=== PATIENT | male | born 1940 | race Caucasian/White ===

== ENCOUNTER 2023-04-06 14:48 | Inpatient (IN) | payer MEDICARE, OTHER, SELFPAY ==
[2023-04-06] VITALS (29 sets, daily range): BP systolic 80–168; BP diastolic 49–85; PULSE 61–82; RESP 13–27; TEMP 36.1–36.8; O2SAT 94–100; BMI 29.9; BMI 26.5
--- NOTE | 2023-04-06 15:20 | XR_ITS ---
[place] [id number] Patient Name: ASIA KING MRN: [id number] date: 1940 Sex: M Assigned Patient Location: ER Current Patient Location: ER Accession/Order Number: [id number] Exam Date: 04/06/2023 15:50 Report Date: 04/06/2023 16:31 At the request of: TINO MEANS Procedure: XR pelvis 1-2V EXAM: XR pelvis 1-2V TECHNIQUE: Single AP view pelvis HISTORY: Fall COMPARISON: None. FINDINGS: No acute fracture or dislocation. Degenerative changes of the lower lumbar spine. Mild degenerative change of the hip joints. XR/XR pelvis 1-2V IMPRESSION: No fracture Electronically authenticated by: PRASHANT RUST Date: 04/06/2023 16:31
--- NOTE | 2023-04-06 15:20 | XR_ITS ---
[place] [id number] Patient Name: ASIA KING MRN: [id number] date: 1940 Sex: M Assigned Patient Location: ER Current Patient Location: ER Accession/Order Number: [id number] Exam Date: 04/06/2023 15:50 Report Date: 04/06/2023 16:33 At the request of: TINO MEANS Procedure: XR knee RT 4V EXAM: XR knee RT 4V TECHNIQUE: AP and lateral and both oblique views right knee HISTORY: Fall COMPARISON: None. FINDINGS: No acute fracture or dislocation. 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 Small knee joint effusion. Soft tissue swelling superficial to the patella. XR/XR knee RT 4V IMPRESSION: No fracture Electronically authenticated by: PRASHANT RUST Date: 04/06/2023 16:33
--- NOTE | 2023-04-06 15:20 | CT_ITS ---
The [address] [address] Patient Name: ASIA KING MRN: [id number] date: 1940 Sex: M Assigned Patient Location: ER Current Patient Location: ER Accession/Order Number: [id number] Exam Date: 04/06/2023 15:50 Report Date: 04/06/2023 16:37 At the request of: TINO MEANS Procedure: CT facial bones wo con CT head/brain wo con, CT facial bones wo con, CT cervical spine wo con, 04/06/2023 3:50 PM EST INDICATION: Fall COMPARISON: There is no appropriate prior study for comparison. TECHNIQUE: Axial images of 3 mm are obtained from the base of the skull to vertex completed with Axial images of 2 mm are obtained from base of skull to T2 without contrast. There is reconstruction of the facial bone. Dose reduction techniques were achieved by using automated exposure control and/or adjustment of mA and/or kV according to patient size and/or use of iterative reconstruction technique. FINDINGS: The sensitivity of study has been decreased due to streak artifacts from dental fillings. The cerebral and cerebellar sulci as well as ventricular system are appropriate for age. There is no intracranial mass, mass effect, midline shift, intra or extra-axial fluid collection. No acute territorial infarction or hemorrhage is noted. The visualized portions of orbits, mastoid air cells as well as paranasal sinuses are unremarkable. There is status post bilateral lens replacement. Right thyroid nodule measuring 2 cm noted. There is no suspicious osteolytic or osteoblastic lesion. There is nasal bone fractures with adjacent soft tissue swelling suggesting of focal acute to subacute. No other acute fracture or dislocation is noted. Multilevel degenerative changes of cervical spine are noted. Soft tissue swelling and subcutaneous emphysema along the left frontal lesion likely due to a wound. CT/CT facial bones wo con IMPRESSION: No acute intracranial process is identified. Nasal bone fractures with adjacent soft tissue swelling suggesting of acute to subacute process. Soft tissue swelling with subcutaneous emphysema in the left frontal region. Incidental note of 2 cm left thyroid lesion. Follow-up with elective ultrasound is recommended. Electronically authenticated by: JAYLYN MARES Date: 04/06/2023 16:37
--- NOTE | 2023-04-06 15:20 | CT_ITS ---
The [address] [address] Patient Name: ASIA KING MRN: [id number] date: 1940 Sex: M Assigned Patient Location: ER Current Patient Location: ER Accession/Order Number: [id number] Exam Date: 04/06/2023 15:50 Report Date: 04/06/2023 16:37 At the request of: TINO MEANS Procedure: CT head/brain wo con CT head/brain wo con, CT facial bones wo con, CT cervical spine wo con, 04/06/2023 3:50 PM EST INDICATION: Fall COMPARISON: There is no appropriate prior study for comparison. TECHNIQUE: Axial images of 3 mm are obtained from the base of the skull to vertex completed with Axial images of 2 mm are obtained from base of skull to T2 without contrast. There is reconstruction of the facial bone. Dose reduction techniques were achieved by using automated exposure control and/or adjustment of mA and/or kV according to patient size and/or use of iterative reconstruction technique. FINDINGS: The sensitivity of study has been decreased due to streak artifacts from dental fillings. The cerebral and cerebellar sulci as well as ventricular system are appropriate for age. There is no intracranial mass, mass effect, midline shift, intra or extra-axial fluid collection. No acute territorial infarction or hemorrhage is noted. The visualized portions of orbits, mastoid air cells as well as paranasal sinuses are unremarkable. There is status post bilateral lens replacement. Right thyroid nodule measuring 2 cm noted. There is no suspicious osteolytic or osteoblastic lesion. There is nasal bone fractures with adjacent soft tissue swelling suggesting of focal acute to subacute. No other acute fracture or dislocation is noted. Multilevel degenerative changes of cervical spine are noted. Soft tissue swelling and subcutaneous emphysema along the left frontal lesion likely due to a wound. CT/CT head/brain wo con IMPRESSION: No acute intracranial process is identified. Nasal bone fractures with adjacent soft tissue swelling suggesting of acute to subacute process. Soft tissue swelling with subcutaneous emphysema in the left frontal region. Incidental note of 2 cm left thyroid lesion. Follow-up with elective ultrasound is recommended. Electronically authenticated by: JAYLYN MARES Date: 04/06/2023 16:37
--- NOTE | 2023-04-06 15:20 | CT_ITS ---
The [address] [address] Patient Name: ASIA KING MRN: [id number] date: 1940 Sex: M Assigned Patient Location: ER Current Patient Location: ER Accession/Order Number: [id number] Exam Date: 04/06/2023 15:50 Report Date: 04/06/2023 16:37 At the request of: TINO MEANS Procedure: CT cervical spine wo con CT head/brain wo con, CT facial bones wo con, CT cervical spine wo con, 04/06/2023 3:50 PM EST INDICATION: Fall COMPARISON: There is no appropriate prior study for comparison. TECHNIQUE: Axial images of 3 mm are obtained from the base of the skull to vertex completed with Axial images of 2 mm are obtained from base of skull to T2 without contrast. There is reconstruction of the facial bone. Dose reduction techniques were achieved by using automated exposure control and/or adjustment of mA and/or kV according to patient size and/or use of iterative reconstruction technique. FINDINGS: The sensitivity of study has been decreased due to streak artifacts from dental fillings. The cerebral and cerebellar sulci as well as ventricular system are appropriate for age. There is no intracranial mass, mass effect, midline shift, intra or extra-axial fluid collection. No acute territorial infarction or hemorrhage is noted. The visualized portions of orbits, mastoid air cells as well as paranasal sinuses are unremarkable. There is status post bilateral lens replacement. Right thyroid nodule measuring 2 cm noted. There is no suspicious osteolytic or osteoblastic lesion. There is nasal bone fractures with adjacent soft tissue swelling suggesting of focal acute to subacute. No other acute fracture or dislocation is noted. Multilevel degenerative changes of cervical spine are noted. Soft tissue swelling and subcutaneous emphysema along the left frontal lesion likely due to a wound. CT/CT cervical spine wo con IMPRESSION: No acute intracranial process is identified. Nasal bone fractures with adjacent soft tissue swelling suggesting of acute to subacute process. Soft tissue swelling with subcutaneous emphysema in the left frontal region. Incidental note of 2 cm left thyroid lesion. Follow-up with elective ultrasound is recommended. Electronically authenticated by: JAYLYN MARES Date: 04/06/2023 16:37
--- NOTE | 2023-04-06 15:20 | ECG_ITS ---
The [facility] Test Date: 2023-04-06 Pat Name: ASIA KING Department: Room: - Gender: Male Information Security: : 1940 Requested By: SHITAL CRUZ Order Number: [id number] Reading MD: CATHRYN SLOAN Measurements Intervals [place] Rate: 62 P: 50 [place]: 204 QRS: -31 QRSD: 96 T: 28 QT: 430 QTc: 435 Interpretive Statements 1100 Sinus rhythm 3614 Cannot rule out inferior myocardial infarction, age undetermined 7200 Abnormal left axis deviation 9150 abnormal ECG Electronically Signed On 04-07-2023 10:45:10 EST by CATHRYN SLOAN
--- NOTE | 2023-04-06 15:20 | XR_ITS ---
The [address] [address] Patient Name: ASIA KING MRN: [id number] date: 1940 Sex: M Assigned Patient Location: ER Current Patient Location: ER Accession/Order Number: [id number] Exam Date: 04/06/2023 15:50 Report Date: 04/06/2023 16:18 At the request of: TINO MEANS Procedure: XR chest 1V EXAM: XR chest 1V HISTORY: Fall. COMPARISON: Chest radiograph dated 12/09/2020. TECHNIQUE: 3 AP views of the chest performed. FINDINGS: The trachea is unremarkable. Stable mild prominence of the cardiac silhouette. There is no consolidation, infiltrate, pleural effusion or pulmonary vascular congestion. There is a stable calcified granuloma within the right lower chest. There is no pneumothorax. The bony structures are osteopenic. No acute osseous abnormality is seen. There are endplate spurs along the spine. There are degenerative changes at the glenohumeral articulations, severe on the right and moderate on the left. XR/XR chest 1V IMPRESSION: There is no acute cardiopulmonary process. Electronically authenticated by: CHELSEA LEMON Date: 04/06/2023 16:18
--- NOTE | 2023-04-06 15:23 | ED.WEAKNESS1 ---
HPI - Weakness General Chief complaint: Weakness Stated complaint: UNSTEADY NOT EATING Time Seen by Provider: 04/06/23 15:09 Source: patient and family Mode of arrival: Wheelchair History of Present Illness HPI Narrative: Patient is an 82-year-old male who presents to the emergency department with his stepdaughter for evaluation of multiple complaints. Patient's 2 months ago, he now lives at home by himself. He states Since his , he has had progressive weakness, difficulty caring for himself, dizziness, difficulty eating. He and his stepdaughter believe that he is depressed. Stepdaughter relates privately to me in the hallway that the patient has not been caring for himself since his , she did everything for the patient to care for him in the home. He now lives alone and has limited support system. He has had multiple falls in the last week, he reports a fall over 24 hours ago at home where he hit his face on the counter/cabinets. Unknown loss of consciousness. He believes he takes a baby aspirin daily. He has had no fevers, chills, chest pain, shortness of breath, nausea, vomiting, diarrhea. He reports injuries to the face, soreness in the back, pain in the right knee. He states when he is attempting to ambulate, he feels dizzy as though the room is spinning and he feels unsteady. Daughter also states that the patient has had negative thoughts in the last 2 months where he is giving away possessions at home and she believes that he is depressed and wants to take these negative thoughts seriously. He has had no direct statements of suicide or homicide. Related Data Home Medications Medication Instructions Recorded Confirmed atorvastatin 20 mg tablet 20 mg PO DAILY 04/06/23 04/06/23 carvedilol 12.5 mg tablet 12.5 mg PO BID 04/06/23 04/06/23 Allergies Allergy/AdvReac Type Severity Reaction Status Date / Time Penicillins Allergy Severe Verified 04/06/23 15:03 Review of Systems ROS Constitutional Denies: fever or chills Eyes Denies: change in vision Ears, nose, mouth, and throat Denies: throat pain or nasal congestion Cardiovascular Denies: chest pain Respiratory Denies: shortness of breath or cough Gastrointestinal Reports: nausea; Denies: abdominal pain, vomiting or diarrhea Genitourinary Denies: painful urination Musculoskeletal Reports: back pain and extremity pain; Denies: neck pain or extremity swelling Integumentary/Breast Denies: rash Neurological Reports: weakness in extremities and dizziness; Denies: headache Hematologic/Lymphatic Denies: easy bruising Exam Narrative Exam Narrative: Gen.: Awake, alert, in no distress Head: Normocephalic, No Arango sign or raccoon eyes. 2 cm laceration with no active bleeding or deep subcutaneous tissue involvement to the forehead between the eyebrows. 1.5 cm laceration over the nasal bridge. C-spine nontender with no ecchymosis or abrasion of the back of the head, neck or lower back. ENT: Moist mucous membranes, Dried epistaxis to the right nostril with no septal hematoma. No dental injury. Respiratory: No respiratory distress, lungs clear bilaterally Cardio: Regular rate and rhythm, Chest wall nontender Gastrointestinal: Abdomen is soft, nondistended and nontender to palpation, Pelvis is stable and hips are nontender Extremities: Moves extremities equally, no injuries noted, Bilateral well-healed surgical incisions over the anterior knees with mild erythema and tenderness over the right knee anteriorly. No joint effusion, normal flexion and extension of the bilateral knees. Psych: Normal mood and affect Neuro: No focal neuro deficit Skin: Warm, dry, intact Constitutional Vital Signs, click to edit/add: Last Vital Signs Temp 97.9 F 04/06/23 14:58 Pulse 64 04/06/23 14:58 Resp 18 04/06/23 14:58 BP 164/79 H 04/06/23 14:58 Pulse Ox 100 04/06/23 14:58 O2 Del Method Room Air 04/06/23 14:58 Course Vital Signs Vital signs: Vital Signs Temperature 97.9 F 04/06/23 14:58 Pulse Rate 64 04/06/23 14:58 Respiratory Rate 18 04/06/23 14:58 Blood Pressure 164/79 H 04/06/23 14:58 Pulse Oximetry 100 04/06/23 14:58 Oxygen Delivery Method Room Air 04/06/23 14:58 Temperature 97.9 F 04/06/23 14:58 Pulse Rate 64 04/06/23 14:58 Respiratory Rate 18 04/06/23 14:58 Blood Pressure 164/79 H 04/06/23 14:58 Pulse Oximetry 100 04/06/23 14:58 Oxygen Delivery Method Room Air 04/06/23 14:58 MDM - Weakness MDM Narrative Medical decision making narrative: Patient treated with IV fluids. Labs obtained, patient sent for CT scanning and tetanus was updated. The lacerations to the face are over 24 hours old,These areas were cleansed and dressed. CT of the head, C-spine, facial bones shows nasal bone fractures which may be acute to subacute. Patient treated for open fracture of the nasal bridge with IV Rocephin. He was noted to have elevated white blood cell count, blood cultures and lactic acid were ordered. He was also noted to have hypokalemia with a potassium of 2.5. He was given oral K-Lyte, 50 mEq. He was switched to IV fluids with potassium for IV potassium supplementation. Labs also show that the patient has a normal troponin and he was not noted to have any EKG changes or complaints of chest pain or shortness of breath. He is in acute renal failure with creatinine 3.8 and BUN 75. Most recent lab studies at this facility were from 2020, the patient was admitted for dehydration and acute kidney injury at that time with a Creatinine 2.75 and BUN 53. His documentation from that visit on 11/12/2020 shows that he does have a history of chronic kidney disease. Dc catheter was placed to manage I and O's. Patient was given Antivert for dizziness, although at this point based on lab studies do suspect he is unsteady and falling due to low potassium, dehydration and acute renal failure. The remainder of his imaging does not show any acute abnormality. Patient admitted for hypokalemia, acute renal failure, dehydration, dizziness. Discussed with Dr. Del Cid for admission. Medical Records Attestation: I reviewed the patient's medical records. Lab Data Attestation: I reviewed the patient's lab results. Labs: Lab Results 04/06/23 04/06/23 Range/Units 15:15 16:25 WBC 20.4 H (4.0-11.0) 10^3/uL RBC 5.52 (4.70-6.10) 10^6/uL Hgb 15.7 (14.0-18.0) g/dL Hct 46.1 (42.0-54.0) % MCV 83.5 (80.0-94.0) fL MCH 28.4 (25.9-34.0) pg MCHC 34.1 (29.9-35.2) g/dL RDW 13.9 (11.0-15.0) % Plt Count 339 (150-450) 10^3/uL MPV 10.5 (9.5-13.5) fL Seg Neuts % (Manual) 82.0 Lymphocytes % (Manual) 10.0 L (20.5-60.0) % Monocytes % (Manual) 7.0 (1.7-12.0) % Eosinophils % (Manual) 0.0 L (0.9-7.0) % Basophils % (Manual) 1.0 (0.2-2.0) % Neutrophils # (Manual) 16.72 H (1.4-6.5) 10^3/uL Lymphocytes # (Manual) 2.04 (1.20-3.80) 10^3/uL Monocytes # (Manual) 1.42 H (0.30-0.80) 10^3/uL Eosinophils # (Manual) 0.00 (0.00-0.70) 10^3/uL Basophils # (Manual) 0.20 H (0.00-0.10) 10^3/uL PT 10.5 (9.0-11.6) sec INR 0.99 APTT 27.2 (22.3-36.2) sec VBG pH 7.493 H (7.330-7.430) VBG pCO2 46.6 (40.0-52.0) mmHg Sodium 134 L (136-145) mmol/L Potassium 2.5 L* (3.5-5.1) mmol/L Chloride 88 L (98-107) mmol/L Carbon Dioxide 35.1 H (21.0-32.0) mmol/L Anion Gap 13.4 BUN 75.0 H (7.0-18.0) mg/dL Creatinine 3.81 H (0.70-1.30) mg/dL Est GFR ( Amer) 19 L (>=60) Est GFR (Non-Af Amer) 15 L (>=60) BUN/Creatinine Ratio 19.7 Glucose 127 H (74-106) mg/dL Lactate 2.1 H (0.4-2.0) mmol/L Calcium 10.0 (8.5-10.1) mg/dL Total Bilirubin 1.8 H (0.2-1.0) mg/dL AST 28 (15-37) U/L ALT 29 (16-63) U/L Alkaline Phosphatase 102 (46-116) U/L Troponin I High Sens 61.0 (4.0-76.1) pg/mL Total Protein 8.4 H (6.4-8.2) g/dL Albumin 4.2 (3.4-5.0) g/dL Globulin 4.2 g/dL Albumin/Globulin Ratio 1.[address] scan - head: Attestation: I have reviewed the pertinent imaging results. Radiologist's impression: ITS Impressions Cervical Spine CT 04/06/23 15:20 IMPRESSION: No acute intracranial process is identified. Nasal bone fractures with adjacent soft tissue swelling suggesting of acute to subacute process. Soft tissue swelling with subcutaneous emphysema in the left frontal region. Incidental note of 2 cm left thyroid lesion. Follow-up with elective ultrasound is recommended. Electronically authenticated by: [facility] [address] Date: 04/06/2023 16:37 Chest X-Ray 04/06/23 15:20 IMPRESSION: There is no acute cardiopulmonary process. Electronically authenticated by: CHELSEA LEMON Date: 04/06/2023 16:[address] 04/06/23 15:20 IMPRESSION: No acute intracranial process is identified. Nasal bone fractures with adjacent soft tissue swelling suggesting of acute to subacute process. Soft tissue swelling with subcutaneous emphysema in the left frontal region. Incidental note of 2 cm left thyroid lesion. Follow-up with elective ultrasound is recommended. Electronically authenticated by: [facility] Date: 04/06/2023 16:[address] 04/06/23 15:20 IMPRESSION: No acute intracranial process is identified. Nasal bone fractures with adjacent soft tissue swelling suggesting of acute to subacute process. Soft tissue swelling with subcutaneous emphysema in the left frontal region. Incidental note of 2 cm left thyroid lesion. Follow-up with elective ultrasound is recommended. Electronically authenticated by: [facility] Date: 04/06/2023 16:37 Knee X-Ray 04/06/23 15:20 IMPRESSION: No fracture Electronically authenticated by: PRASHANT RUST Date: 04/06/2023 16:33 Pelvis X-Ray 04/06/23 15:20 IMPRESSION: No fracture Electronically authenticated by: PRASHANT RUST Date: 04/06/2023 16:31 ECG Data Attestation: I personally reviewed and interpreted this ECG as follows: (Normal sinus rhythm at a rate of 62, no acute ST elevation or ectopy. EKG reviewed by attending physician.) ECG interpretation date: 04/06/23 Discharge Plan Discharge Chief Complaint: Weakness Patient Disposition: Admitted As Inpatient Time of Disposition Decision: 17:31 Prescriptions / Home Meds: No Action atorvastatin 20 mg tablet 20 mg PO DAILY carvedilol 12.5 mg tablet 12.5 mg PO BID Referrals: SHITAL CRUZ [Primary Care Provider] - 1 week
[2023-04-06 15:29] LABS: Hematocrit 46.1 % (42.0-54.0); Hemoglobin 15.7 g/dL (14.0-18.0); Mean Corpuscular HGB Conc 34.1 g/dL (29.9-35.2); Mean Corpuscular Hemoglobin 28.4 pg (25.9-34.0); Mean Corpuscular Volume 83.5 fL (80.0-94.0); Mean Platelet Volume 10.5 fL (9.5-13.5); Platelet Count 339 10^3/uL (150-450); Red Blood Count 5.52 10^6/uL (4.70-6.10); Red Cell Distribution Width 13.9 % (11.0-15.0); White Blood Count 20.4 10^3/uL (4.0-11.0)
[2023-04-06 15:42] LABS: INR 0.99; Partial Thromboplastin Time 27.2 sec (22.3-36.2); Prothrombin Time 10.5 sec (9.0-11.6)
[2023-04-06] MEDS: 0.9 % SODIUM CHLORIDE 1,000 ML 999 ML IV (15:43)
[2023-04-06] MEDS: ADACEL DIPH,PERTUSS(ACELL),TET VAC/PF 0.5 ML ADULT SYRINGE IM (15:43)
[2023-04-06] MEDS: MECLIZINE HCL 12.5 MG TABLET 25 MG PO (15:45)
[2023-04-06 15:48] LABS: Alanine Aminotransferase 29 U/L (16-63); Albumin Level 4.2 g/dL (3.4-5.0); Alkaline Phosphatase 102 U/L (46-116); Aspartate Amino Transferase 28 U/L (15-37); BUN Creatinine Ratio 19.7; Bilirubin Total 1.8 mg/dL (0.2-1.0); Carbon Dioxide 35.1 mmol/L (21.0-32.0); Estimated GFR (African America 19 (>=60); Estimated GFR (Non-African Ame 15 (>=60); Globulin 4.2 g/dL; Glucose 127 mg/dL (74-106); Total Protein 8.4 g/dL (6.4-8.2)
[2023-04-06 15:58] LABS: Potassium 2.5 mmol/L (3.5-5.1)
[2023-04-06 15:59] LABS: Anion Gap 13.4; Chloride 88 mmol/L (98-107); Sodium 134 mmol/L (136-145)
[2023-04-06 16:16] LABS: Lymphocytes Absolute Manual 2.04 10^3/uL (1.20-3.80); Monocytes Absolute Manual 1.42 10^3/uL (0.30-0.80); Segmented Neut Absolute Manual 16.72 10^3/uL (1.4-6.5)
[2023-04-06 16:36] LABS: PCO2 VBG 46.6 mmHg (40.0-52.0); pH VBG 7.493 (7.330-7.430)
[2023-04-06] MEDS: POTASSIUM CHLORIDE IN 0.9%NACL 1,000 ML 250 MEQ IV (16:43)
[2023-04-06] MEDS: POTASSIUM BICARBONATE/CIT 25 MEQ TABLET EFF 50 MEQ PO (16:43)
[2023-04-06 16:59] LABS: Lactate/Lactic Acid 2.1 mmol/L (0.4-2.0)
[2023-04-06 17:27] LABS: Bilirubin Urine NEGATIVE (NEGATIVE); Blood Urine SMALL (NEGATIVE); Clarity Urine CLEAR (CLEAR); Color Urine LT. YELLOW (YELLOW); Glucose Urine UA NEGATIVE (NEGATIVE); Ketones Urine NEGATIVE (NEGATIVE); Leukocyte Esterase Urine NEGATIVE (NEGATIVE); Nitrite Urine NEGATIVE (NEGATIVE); Protein Urine NEGATIVE (NEG/TRACE); Specific Gravity Urine <=1.005 (1.005-1.025); Urobilinogen Urine 0.2 EU/dL (0.2-1.0)
[2023-04-06 17:29] LABS: Urine Microscopic Indicated YES
[2023-04-06] MEDS: CEFTRIAXONE 1,000 MG in 0.9 % SODIUM CHLORIDE 50 ML 100 MG IV (17:34)
[2023-04-06 17:38] LABS: Bacteria Urine NONE SEEN #/HPF (NONE SEEN); Cast Seen? SEEN #/LPF (NONE SEEN); Crystals Seen? None Seen #/HPF (None Seen); Mucus Urine NONE SEEN (NONE SEEN); RBC Urine 0-2 #/HPF (0-2); Squamous Epithelial Cell Urine RARE #/LPF (NONE/RARE); WBC Urine NONE SEEN #/HPF (NONE SEEN)
[2023-04-06 17:39] LABS: Hyaline Casts Urine RARE; Urine Culture Indicated NO
[2023-04-06] MEDS: BACITRACIN 0.9 GM PACKET 1 PACKET TOPICAL (18:00)
[2023-04-06 18:43] LABS: Magnesium 2.6 mg/dL (1.8-2.4)
[2023-04-06 18:58] LABS: PROCALCITONIN 0.18 ng/mL (0.00-0.50)
[2023-04-06 19:01] LABS: Adenovirus NOT DETECTED (NOT DETECTE); Bordetella parapertussis NOT DETECTED (NOT DETECTE); Coronavirus 229E NOT DETECTED (NOT DETECTE); Coronavirus HKU1 NOT DETECTED (NOT DETECTE); Coronavirus NL63 NOT DETECTED (NOT DETECTE); Coronavirus OC43 NOT DETECTED (NOT DETECTE); Human Metapneumovirus NOT DETECTED (NOT DETECTE); Human Rhinovirus/Enterovirus NOT DETECTED (NOT DETECTE); Influenza A NOT DETECTED (NOT DETECTE); Influenza B NOT DETECTED (NOT DETECTE); Mycoplasma pneumoniae NOT DETECTED (NOT DETECTE); Parainfluenza Virus 1 NOT DETECTED (NOT DETECTE); Parainfluenza Virus 2 NOT DETECTED (NOT DETECTE); Parainfluenza Virus 3 NOT DETECTED (NOT DETECTE); Parainfluenza Virus 4 NOT DETECTED (NOT DETECTE); Respiratory Syncytial Virus NOT DETECTED (NOT DETECTE); SARS-CoV-2 NOT DETECTED (NOT DETECTE)
[2023-04-06 20:40] LABS: Lactate/Lactic Acid 1.9 mmol/L (0.4-2.0)
[2023-04-06] MEDS: 0.9 % SODIUM CHLORIDE 1,000 ML 125 ML IV (20:59)
[2023-04-06] MEDS: HEPARIN SODIUM (PORCINE) 5,000 UNIT/ML VIAL 5000 UNIT SUBQ (20:59)
[2023-04-06] MEDS: CARVEDILOL 12.5 MG TABLET PO (20:59)
[2023-04-07] VITALS (22 sets, daily range): BP systolic 77–144; BP diastolic 46–65; PULSE 57–68; RESP 18–20; TEMP 36.6–37.1; O2SAT 94–96
[2023-04-07] MEDS: 0.9 % SODIUM CHLORIDE 1,000 ML 125 ML IV (04:59)
[2023-04-07 05:43] LABS: Basophils Absolute Auto 0.1 10^3/uL (0.0-0.1); Basophils Percent Auto 0.5 % (0.2-2.0); Eosinophils Absolute Auto 0.2 10^3/uL (0.0-0.7); Eosinophils Percent Auto 1.1 % (0.9-7.0); Hematocrit 39.9 % (42.0-54.0); Hemoglobin 13.2 g/dL (14.0-18.0); Immature Granulocytes Abs Auto 0.06 10^3/uL (0.00-0.03); Immature Granulocytes Pct Auto 0.4 % (0.0-0.5); Lymphocytes Absolute Auto 2.3 10^3/uL (1.2-3.8); Lymphocytes Percent Auto 15.3 % (20.5-60.0); Mean Corpuscular HGB Conc 33.1 g/dL (29.9-35.2); Mean Corpuscular Hemoglobin 28.3 pg (25.9-34.0); Mean Corpuscular Volume 85.4 fL (80.0-94.0); Mean Platelet Volume 10.4 fL (9.5-13.5); Monocytes Absolute Auto 2.6 10^3/uL (0.3-0.8); Monocytes Percent Auto 17.2 % (1.7-12.0); Neutrophils Absolute Auto 9.7 10^3/uL (1.4-6.5); Neutrophils Percent Auto 65.5 % (43.0-75.0); Platelet Count 264 10^3/uL (150-450); Red Blood Count 4.67 10^6/uL (4.70-6.10); Red Cell Distribution Width 14.3 % (11.0-15.0); White Blood Count 14.8 10^3/uL (4.0-11.0)
[2023-04-07 06:01] LABS: Alanine Aminotransferase 37 U/L (16-63); Albumin Globulin Ratio 0.9; Albumin Level 3.1 g/dL (3.4-5.0); Alkaline Phosphatase 80 U/L (46-116); Anion Gap 8.2; Aspartate Amino Transferase 33 U/L (15-37); BUN Creatinine Ratio 22.6; Bilirubin Total 0.9 mg/dL (0.2-1.0); Calcium 8.6 mg/dL (8.5-10.1); Carbon Dioxide 31.1 mmol/L (21.0-32.0); Chloride 99 mmol/L (98-107); Estimated GFR (African America 25 (>=60); Estimated GFR (Non-African Ame 20 (>=60); Globulin 3.5 g/dL; Glucose 105 mg/dL (74-106); Sodium 136 mmol/L (136-145); Total Protein 6.6 g/dL (6.4-8.2)
[2023-04-07 06:23] LABS: Potassium 2.3 mmol/L (3.5-5.1)
[2023-04-07] MEDS: POTASSIUM CHLORIDE 40 MEQ in 0.9 % SODIUM CHLORIDE 250 ML 67.5 MEQ IV (07:58)
--- NOTE | 2023-04-07 08:59 | P.HP_ITS ---
H&P: HPI History of Present Illness Chief complaint: UNSTEADY NOT EATING Narrative: patient is a 82-year-old male with past medical history of hypertension, hyperlipidemia, iron deficiency anemia, CKD who presented to the Emergency Room yesterday after having several falls at home. At the time of exam patient's [id number] and niece are at bedside. Patient says his health started to decline a few months ago when his . He has lost rated and 30 pounds. He has tried to do some grief counseling with hospice but feels he needs more grief counseling. He continued to take his medications as prescribed including both the Lasix and hydrochlorothiazide. On admission exam he has positive orthostatic vital signs. The Emergency Room also found hypokalemia at 2.1. Leukocytosis of thirty thousand and a urinary tract infection.CT of the head face showed a fracture nasal bone. No other fractures or brain pathology seen. Patient states that his nose is sore but denies any breathing issues. He had a right knee replacement recently and did fall on his knee which does show some bruising the x-ray was negative for fracture. Overall he says he's just been getting really weak and dizzy especially when he stands up which is leading to his falls. He says his was his primary glued wood tester and assisted him with all of his medications so he is not really sure what he should and shouldn't be taking. He saw a bronze chaser about 1-2 years ago in [place] and sees a primary care physician. Patient has no other issues or concerns. Review of Systems ROS Narrative ROS: a complete review of systems were reviewed with patient and are positive as below or listed in History of Chief Complaint. General: no fever, chills, night sweats Head: no headache, trauma, visual changes, nausea or vomiting Skin: no reported rashes, itching or sores Eyes: no blurriness of vision Ears: no reported hearing loss, vertigo, earache, or tinnitus Throat: no sore throat, hoarseness, swelling of neck, or tongue pain Heart: no chest pain Lungs: no shortness of breath or cough GI: no diarrhea or vomiting/nausea Urinary: no urinary urgency, frequency or pain Neuro: no numbness or tingling HEM: no bleeding issues or bruising ENDO: no thyroid problems Psych: no anxiety but some depression PFSH PFSH Medical History (Updated 04/07/23 @ 16:27 by Babs Del Cid DO) Anemia ?D64.9 - Anemia, unspecified (ICD-10) Chronic kidney disease ?N18.9 - Chronic kidney disease, unspecified (ICD-10) Hypertension ?I10 - Essential (primary) hypertension (ICD-10) Surgical History History of bilateral knee replacement ?Z96.653 - Presence of artificial knee joint, bilateral (ICD-10) Family History Father Family history of myocardial infarction Family history of hypertension Family history of CHF (congestive heart failure) Social History Within the past year, how often did you have a drink containing alcohol: monthly or less Smoking status: Former smoker Non-prescribed substance use: cannabis (any form) Highest level of school completed/degree received: high school graduate Do you think of yourself as: straight/heterosexual Gender Identity: male Meds Home Medications and Allergies Home Medications Medication Instructions Recorded Confirmed Type amlodipine 5 mg tablet 5 mg PO DAILY 04/06/23 04/06/23 History atorvastatin 20 mg tablet 20 mg PO DAILY 04/06/23 04/06/23 History carvedilol 12.5 mg tablet 12.5 mg PO BID 04/06/23 04/06/23 History ferrous sulfate 325 mg (65 mg 325 mg PO DAILY 04/06/23 04/06/23 History iron) tablet,delayed release furosemide 40 mg tablet 40 mg PO DAILY 04/06/23 04/06/23 History hydrochlorothiazide 25 mg tablet 25 mg PO DAILY 04/06/23 04/06/23 History Allergies Allergy/AdvReac Type Severity Reaction Status Date / Time Penicillins Allergy Severe Verified 04/06/23 15:03 Exam Narrative Exam Narrative: General: Patient is alert, and oriented to person, place and time with normal affect, proper hygiene Skin: 1cm laceration on the nasal bone and forehead, closed and healing Head: atraumatic, acephalic Eyes: PERRLA, no nystagmus present, conjunctiva clear, no scleral icterus Ears: normal gross auditory acuity Nose: symmetric, no discharge, no maxillary or frontal sinus tenderness Heart: Normal rate and rhythm, no murmurs/rubs/gallops Lungs: no audible wheezes, crackles and normal breath sounds all lung gage Abdomen: Normal audible bowel sounds, no distension, No palpable masses, no organomegaly, no rebound/guarding/ or rigidity Musculoskeletal: no swelling bilateral lower extremities, bruise noted on the right knee patella Neuro: CN II-X grossly intact, normal sensation upper and lower extremities Constitutional Vital Signs, click to edit/add: Last Vital Signs Temp 98.7 F 04/07/23 04:58 Pulse 57 L 04/07/23 07:49 Resp 20 04/07/23 04:58 BP 130/61 04/07/23 04:58 Pulse Ox 94 L 04/07/23 04:58 O2 Del Method Room Air 04/07/23 04:58 Results Labs Labs: Short CBC 04/06/23 04/07/23 Range/Units 15:15 05:16 WBC 20.4 H 14.8 H (4.0-11.0) 10^3/uL Hgb 15.7 13.2 L (14.0-18.0) g/dL Hct 46.1 39.9 L (42.0-54.0) % Plt Count 339 264 (150-450) 10^3/uL BMP 04/06/23 04/07/23 15:15 05:16 Sodium 134 L 136 Potassium 2.5 L* 2.3 L* Chloride 88 L 99 Carbon Dioxide 35.1 H 31.1 BUN 75.0 H 67.0 H Creatinine 3.81 H 2.97 H Glucose 127 H 105 Calcium 10.0 8.6 Liver Function 04/06/23 04/07/23 Range/Units 15:15 05:16 Total Bilirubin 1.8 H 0.9 (0.2-1.0) mg/dL AST 28 33 (15-37) U/L ALT 29 37 (16-63) U/L Alkaline Phosphatase 102 80 (46-116) U/L Albumin 4.2 3.1 L (3.4-5.0) g/dL Urine 04/06/23 Range/Units 17:20 Urine Color Lt. yellow (YELLOW) Urine Clarity Clear (CLEAR) Urine pH 6.0 (5.0-9.0) Ur Specific [place] <=1.005 A (1.005-1.025) Urine Protein Negative (NEG/TRACE) mg/dL Urine Glucose (UA) Negative (NEGATIVE) mg/dL ABG ABG results: 04/06/23 16:25 VBG pH 7.493 H VBG pCO2 46.6 Assessment and Plan Assessment and Plan (1) Acute hypokalemia: Assessment and Plan: mostly related to his Lasix and hydrochlorothiazide combination. We'll continue to hold this and provide IV potassium replacement and oral replacement. Continue to monitor potassium level closely. (2) Dehydration: Assessment and Plan: continue IV fluids with potassium. Improvement in creatinine and BUNs this morning. Improvement in leukocytosis (3) Laceration of face, multiple sites: Assessment and Plan: healing, placed on rocephin for leukocytosis and possible infection. UA negative (4) Frequent falls: Assessment and Plan: due to hypotension from polypharmacy, will also stop Amlodipine (5) Acute renal failure: Assessment and Plan: admitting creatinine was 3.81 this morning is down to 2.97 and with the hypokalemia will put in a consultation for the tele bronze chaser tomorrow. And appreciate their input. Avoid diuretics. Qualifiers: Acute renal failure type: unspecified Qualified Code(s): N17.9 - Acute kidney failure, unspecified (6) Dizziness: Assessment and Plan: most likely from hypotension will address blood pressure medications (7) Anemia: Assessment and Plan: iron deficiency, continue iron replacement Qualifiers: Anemia type: due to chronic kidney disease Chronic kidney disease stage: unspecified stage Qualified Code(s): N18.9 - Chronic kidney disease, unspecified; D63.1 - Anemia in chronic kidney disease (8) Hypertension: Assessment and Plan: continue home medications but will need adjusted secondary to hypotension. Qualifiers: Hypertension type: primary hypertension Qualified Code(s): I10 - Essential (primary) hypertension Plan patient is a full code Continue Lovenox for deep vein thrombosis prophylaxis PT OT evaluation and treat patient is an inpatient status as expected to stay more than to midnights Urinary Catheter Management Urinary Catheter Management Urethral: Cath placed during this visit: yes Urethral indwelling: No Insertion date: 04/06/23 Insertion time: 16:55
[2023-04-07] MEDS: CARVEDILOL 12.5 MG TABLET PO (09:04)
[2023-04-07] MEDS: POTASSIUM CHLORIDE 10 MEQ ER TABLET 20 MEQ PO ×2 (09:04→20:36)
[2023-04-07] MEDS: ATORVASTATIN CALCIUM 20 MG TABLET PO (09:04)
[2023-04-07] MEDS: FERROUS SULFATE 325 MG TABLET PO (09:04)
[2023-04-07] MEDS: HEPARIN SODIUM (PORCINE) 5,000 UNIT/ML VIAL 5000 UNIT SUBQ ×2 (09:06→20:36)
[2023-04-07 13:17] LABS: Anion Gap 10.7; BUN Creatinine Ratio 21.1; Calcium 8.8 mg/dL (8.5-10.1); Carbon Dioxide 32.4 mmol/L (21.0-32.0); Chloride 98 mmol/L (98-107); Estimated GFR (African America 27 (>=60); Estimated GFR (Non-African Ame 22 (>=60); Glucose 112 mg/dL (74-106); Potassium 3.1 mmol/L (3.5-5.1); Sodium 138 mmol/L (136-145)
[2023-04-07] MEDS: 0.9 % SODIUM CHLORIDE 1,000 ML 50 ML IV (19:43)
[2023-04-07] MEDS: CARVEDILOL 3.125 MG TABLET PO (20:36)
[2023-04-08] VITALS (20 sets, daily range): BP systolic 91–149; BP diastolic 50–73; PULSE 62–72; RESP 18–19; TEMP 36.4–36.6; O2SAT 93–98
[2023-04-08 05:23] LABS: Basophils Absolute Auto 0.1 10^3/uL (0.0-0.1); Basophils Percent Auto 0.9 % (0.2-2.0); Eosinophils Absolute Auto 0.6 10^3/uL (0.0-0.7); Eosinophils Percent Auto 4.6 % (0.9-7.0); Hematocrit 38.1 % (42.0-54.0); Hemoglobin 12.4 g/dL (14.0-18.0); Immature Granulocytes Abs Auto 0.06 10^3/uL (0.00-0.03); Immature Granulocytes Pct Auto 0.4 % (0.0-0.5); Lymphocytes Absolute Auto 2.4 10^3/uL (1.2-3.8); Lymphocytes Percent Auto 17.3 % (20.5-60.0); Mean Corpuscular HGB Conc 32.5 g/dL (29.9-35.2); Mean Corpuscular Hemoglobin 28.2 pg (25.9-34.0); Mean Corpuscular Volume 86.6 fL (80.0-94.0); Mean Platelet Volume 10.5 fL (9.5-13.5); Monocytes Absolute Auto 2.3 10^3/uL (0.3-0.8); Monocytes Percent Auto 16.3 % (1.7-12.0); Neutrophils Absolute Auto 8.4 10^3/uL (1.4-6.5); Neutrophils Percent Auto 60.5 % (43.0-75.0); Platelet Count 239 10^3/uL (150-450); Red Cell Distribution Width 14.4 % (11.0-15.0); White Blood Count 13.9 10^3/uL (4.0-11.0)
[2023-04-08 06:10] LABS: Alanine Aminotransferase 29 U/L (16-63); Albumin Globulin Ratio 0.8; Albumin Level 2.7 g/dL (3.4-5.0); Alkaline Phosphatase 69 U/L (46-116); Anion Gap 8.3; Aspartate Amino Transferase 23 U/L (15-37); BUN Creatinine Ratio 21.3; Bilirubin Total 0.9 mg/dL (0.2-1.0); Calcium 8.5 mg/dL (8.5-10.1); Carbon Dioxide 28.6 mmol/L (21.0-32.0); Chloride 102 mmol/L (98-107); Estimated GFR (African America 32 (>=60); Estimated GFR (Non-African Ame 27 (>=60); Globulin 3.3 g/dL; Glucose 93 mg/dL (74-106); Sodium 136 mmol/L (136-145)
[2023-04-08 06:25] LABS: Potassium 2.9 mmol/L (3.5-5.1)
--- NOTE | 2023-04-08 08:30 | CM.NOTE ---
Important Message From Medicare discussed with pt, pt verbalizes understanding and signs paper. Original given to pt and copy placed on pt's chart.
--- NOTE | 2023-04-08 08:36 | PM.PN ---
Progress Note: Subjective Subjective Interval history: Patient sitting up in chair this morning. No complaints. says he still gets dizzy when standing. Denies any chest pain, sob, fevers, chills, n/v/d Exam Narrative Exam Narrative: General: Patient is alert, and oriented to person, place and time with normal affect, proper hygiene Skin: healing facial lacerations Head: atraumatic, acephalic Heart: Normal rate and rhythm, no murmurs/rubs/gallops Lungs: no audible wheezes, crackles and normal breath sounds all lung gage Abdomen: Normal audible bowel sounds, no distension, No palpable masses, no organomegaly, no rebound/guarding/ or rigidity Musculoskeletal: no swelling bilateral lower extremities Neuro: CN II-X grossly intact Constitutional Vital Signs, click to edit/add: Last Vital Signs Temp 97.6 F 04/08/23 05:23 Pulse 66 04/08/23 07:56 Resp 18 04/08/23 05:23 BP 91/50 04/08/23 07:56 Pulse Ox 93 L 04/08/23 05:23 O2 Del Method Room Air 04/08/23 05:23 Progress Note: Objective Labs Labs: Short CBC 04/08/23 Range/Units 05:00 WBC 13.9 H (4.0-11.0) 10^3/uL Hgb 12.4 L (14.0-18.0) g/dL Hct 38.1 L (42.0-54.0) % Plt Count 239 (150-450) 10^3/uL BMP 04/07/23 04/08/23 12:59 05:00 Sodium 138 136 Potassium 3.1 L 2.9 L* Chloride 98 102 Carbon Dioxide 32.4 H 28.6 BUN 59.0 H 50.0 H Creatinine 2.79 H 2.35 H Glucose 112 H 93 Calcium 8.8 8.5 Liver Function 04/08/23 Range/Units 05:00 Total Bilirubin 0.9 (0.2-1.0) mg/dL AST 23 (15-37) U/L ALT 29 (16-63) U/L Alkaline Phosphatase 69 (46-116) U/L Albumin 2.7 L (3.4-5.0) g/dL Progress Note: A&P Assessment and Plan (1) Acute hypokalemia: Assessment and Plan: mostly related to his Lasix and hydrochlorothiazide combination. We'll continue to hold this and provide IV potassium replacement and oral replacement. Continue to monitor potassium level closely. (2) Dehydration: Assessment and Plan: Improvement in creatinine and BUNs this morning. Improvement in leukocytosis. stop IVF (3) Laceration of face, multiple sites: Assessment and Plan: healing, placed on rocephin for leukocytosis and possible infection. UA negative (4) Frequent falls: Assessment and Plan: due to hypotension from polypharmacy, will also stop Amlodipine and decrease coreg, echo and carotid us dopplers today (5) Acute renal failure: Assessment and Plan: admitting creatinine was 3.81 this morning is down to 2.35 and with the hypokalemia will put in a consultation for the tele recruiting coordinator and appreciate their input. Avoid diuretics. Qualifiers: Acute renal failure type: unspecified Qualified Code(s): N17.9 - Acute kidney failure, unspecified (6) Anemia: Assessment and Plan: iron deficiency, continue iron replacement Qualifiers: Anemia type: due to chronic kidney disease Chronic kidney disease stage: unspecified stage Qualified Code(s): N18.9 - Chronic kidney disease, unspecified; D63.1 - Anemia in chronic kidney disease (7) Hypertension: Assessment and Plan: continue home medications but will need adjusted secondary to hypotension. Qualifiers: Hypertension type: primary hypertension Qualified Code(s): I10 - Essential (primary) hypertension Plan patient is a full code Continue Lovenox for deep vein thrombosis prophylaxis PT OT evaluation and treat Urinary Catheter Management Urinary Catheter Management Urethral: Cath placed during this visit: yes Urethral indwelling: No Insertion date: 04/06/23 Insertion time: 16:55
[2023-04-08] MEDS: FERROUS SULFATE 325 MG TABLET PO (08:51)
[2023-04-08] MEDS: ATORVASTATIN CALCIUM 20 MG TABLET PO (08:51)
[2023-04-08] MEDS: POTASSIUM CHLORIDE 10 MEQ ER TABLET 20 MEQ PO ×3 (08:51→21:14)
[2023-04-08] MEDS: CARVEDILOL 3.125 MG TABLET PO ×2 (08:51→21:15)
[2023-04-08] MEDS: POTASSIUM CHLORIDE 40 MEQ in 0.9 % SODIUM CHLORIDE 250 ML 67.5 MEQ IV (08:51)
[2023-04-08] MEDS: HEPARIN SODIUM (PORCINE) 5,000 UNIT/ML VIAL 5000 UNIT SUBQ ×2 (10:15→21:15)
--- NOTE | 2023-04-08 10:54 | CM.NOTE ---
Rounds made with Dr. Del Cid, discussed with pt about nephrology consult and echo today. Pt verbalizes understanding.
--- NOTE | 2023-04-08 10:57 | SWNOTE1 ---
SW spoke to case management and home health was recommended. SW spoke with pt and he lives at home alone. Pt is agreeable to have home health come in. He has had them in the past, could not remember who it was. Pt voiced his daughter in law will be coming and to ask her. SW to stop back in once family is here.
--- NOTE | 2023-04-08 11:02 | CA_ITS ---
Patient Name: ASIA KING MR#: [id number] : 1940 Exam Date: 04/08/2023 Ordering Doctor: ASTER BEJARANO . ECHOCARDIOGRAM REPORT PROCEDURE: CA ECHO DOPPLER COMPLETE INDICATIONS: sycope with collapse COMPARISON: None. DESCRIPTION: COMPLETE ECHOCARDIOGRAM Real-time transthoracic echocardiography with 2D, M-mode, spectral and color flow Doppler performed. QUALITY: Technical quality was good. LEFT VENTRICLE: Normal chamber size. Mild concentric left ventricular hypertrophy. Global left ventricular systolic function is normal. LV EF: Estimated left ventricular ejection fraction is 65-70% DIASTOLIC: Normal diastolic function. ATRIAL SEPTUM: LEFT ATRIUM: Mild dilatation. RIGHT ATRIUM: Normal chamber size. RIGHT VENTRICLE: Normal chamber size. Normal right ventricular systolic function. TRICUSPID VALVE: Normal mobility and thickness. No stenosis with trivial regurgitation. No evidence of pulmonary hypertension. RVSP 32 mmHg MITRAL VALVE: Normal mobility and thickness. No evidence of mitral valve stenosis. There is no mitral annular calcification. No mitral regurgitation. AORTIC VALVE: Normal trileaflet appearance. Thickened aortic valve. Normal leaflet mobility. No evidence of aortic valve stenosis. No aortic regurgitation. AORTIC ROOT: Normal diameter and appearance. PULMONIC VALVE: Normal thickness and mobility. No stenosis. Trivial regurgitation. PERICARDIUM: No evidence of pericardial effusion. IVC: Collapses with inspirations. Normal in size measuring 2.1 cm. PLEURA: CONCLUSION: 1. Mild concentric left ventricular hypertrophy with normal systolic function. LVEF is 65 to 70%. 2. Normal right ventricular size and systolic function. 3. No significant valvular dysfunction. 4. Normal right-sided pressures. Adult Echocardiography Procedure Report Left Ventricle LVEDD (3.7 - 5.6 cm): 4.71 cm LVESD (2.2 - 4.0 cm): 3.10 cm LVIVS thickness (0.6 - 1.2 cm): 1.23 cm LVPW thickness (0.5 - 1.0 cm): 1.22 cm e': 0.11 m/s E - e': 6.67 LVOT Max Gradient: 6.25 mm[Hg] LVOT Area (cm2): 1.25 m/s Peak Velocity (LVOT): 1.25 m/s Mean Velocity (LVOT): 0.91 m/s LVOT Diameter 2.01 cm Left Ventricular Ejection Fraction: 65-70 % Left Atrium LA Volume Index (2D A2C): 39.78 ml/m2 Left Atrium Systolic Dimension: 3.59 cm Mitral Valve MV E to A Ratio: 0.82, 0.76 Mitral Valve A-Wave Peak Velocity: 0.92 m/s Mitral Valve E-Wave Peak Velocity: 0.73 m/s Right Ventricle RV Internal Diastolic Dimension: 2.77 cm Aorta AO Root Diam: 3.53 cm Ascending Ao Diam: 3.12 cm Aortic Valve AoV Area (Peak Xavier): 2.65 cm2, 2.65 cm2 AoV Area (VTI): 2.55 cm2, 2.55 cm2 Peak Velocity(Antegrade Flow): 1.49 m/s Peak Gradient(Antegrade Flow): 8.91 mm[Hg] Mean Velocity(Antegrade Flow): 1.02 m/s Mean Gradient(Antegrade Flow): 4.88 mm[Hg] Velocity Time Integral: 34.29 cm Tricuspid Valve Peak Velocity (Regurgitant Flow): 2.52 m/s, 2.69 m/s, 2.39 m/s Pulmonic Valve Peak Velocity: 0.92 m/s Peak Gradient: 3.04 mm[Hg], 3.83 mm[Hg] Right Atrium Right Atrium Systolic Pressure: 27.84 ml, 27.84 ml Dictated by: Rancho Fernando M.D. on 04/09/2023 at 18:26 Approved by: Rancho Fernando M.D. on 04/09/2023 at 18:29
--- NOTE | 2023-04-08 11:02 | US_ITS ---
[place] [id number] Patient Name: ASIA KING MRN: [id number] date: 1940 Sex: M Assigned Patient Location: [place] Current Patient Location: [place] Accession/Order Number: [id number] Exam Date: 04/08/2023 14:39 Report Date: 04/08/2023 15:46 At the request of: ASTER BEJARANO Procedure: US carotid duplex BI ULTRASOUND Carotid artery color duplex History: Syncope. COMPARISON: None. METHOD: Bilateral carotid arterial duplex examination was performed using B-mode, color flow and spectral analysis. Carotid stenosis is reported according to validated velocity parameters, similar to NASCET criteria. FINDINGS: There is mild heterogeneous plaque in the bilateral internal carotid arteries. There is spectral broadening in the left internal carotid artery waveform. There is normal color flow. The peak-systolic velocity in the internal carotid arteries in cm/s is as follows: RIGHT INTERNAL CAROTID ARTERY Proximal: 89 Mid: 93 Distal: 87 LEFT INTERNAL CAROTID ARTERY Proximal: 177 Mid: 153 Distal: 95 There are no elevated velocities in the common carotid or external carotid arteries bilaterally. There are forward-flow vertebral arteries. US/US carotid duplex BI IMPRESSION: Mild heterogeneous plaques in the left internal carotid artery with a 50-69% stenosis. Electronically authenticated by: JHON RAMSEY Date: 04/08/2023 15:46
--- NOTE | 2023-04-08 11:07 | P.NEPCN_ITS ---
History of Present Illness Reason for Consult Consult date: 04/08/23 Reason for consult: acute renal failure Chief Complaint Chief complaint: UNSTEADY NOT EATING History of Present Illness Narrative: 82 year old gentleman with history of CKD 4, HTN, presented to ED with falls and poor intake, unable to take care of himself after his spouse early February. He reports having very poor oral intake, no nausea, vomiting but has not had an appetite and not eaten anything for weeks on presentation. no other complaints, no chest pain or palpitaitons. No other complaints currently. Was found to have hypokalemia and HARLEY with Cr upto 3.8 on presentation, was given IV fluids and K repletion and Cr has improved to 2.35 on day of consult with K still low at 2.9. tolerating diet, says he has been eating food 3 times a day without any issues. all other systems reviewed and negative. [facility] Medical History (Updated 04/07/23 @ 16:27 by Babs Del Cid DO) Anemia ?D64.9 - Anemia, unspecified (ICD-10) Chronic kidney disease ?N18.9 - Chronic kidney disease, unspecified (ICD-10) Hypertension ?I10 - Essential (primary) hypertension (ICD-10) Surgical History History of bilateral knee replacement ?Z96.653 - Presence of artificial knee joint, bilateral (ICD-10) Family History Father Family history of myocardial infarction Family history of hypertension Family history of CHF (congestive heart failure) Social History Within the past year, how often did you have a drink containing alcohol: monthly or less Smoking status: Former smoker Non-prescribed substance use: cannabis (any form) Highest level of school completed/degree received: high school graduate Do you think of yourself as: straight/heterosexual Gender Identity: male Meds Home Medications and Allergies Home Medications Medication Instructions Recorded Confirmed Type amlodipine 5 mg tablet 5 mg PO DAILY 04/06/23 04/06/23 History atorvastatin 20 mg tablet 20 mg PO DAILY 04/06/23 04/06/23 History carvedilol 12.5 mg tablet 12.5 mg PO BID 04/06/23 04/06/23 History ferrous sulfate 325 mg (65 mg 325 mg PO DAILY 04/06/23 04/06/23 History iron) tablet,delayed release furosemide 40 mg tablet 40 mg PO DAILY 04/06/23 04/06/23 History hydrochlorothiazide 25 mg tablet 25 mg PO DAILY 04/06/23 04/06/23 History Allergies Allergy/AdvReac Type Severity Reaction Status Date / Time Penicillins Allergy Severe Verified 04/06/23 15:03 Exam Narrative: Exam Narrative: General appearance: appears stated age, Not in distress HEENT: head atraumatic and normocephalic, no icterus, pallor Chest:Air entry equal, no rales/wheezing Heart: S1S2 nl, no murmurs, normal rate, regular Extremities: no edema Abd: soft, non distended Neuro: AAO X 3 no focal deficits Skin: no visible rash Steth not working, auscultation findings discussed with RN Constitutional: Vital Signs, click to edit/add: Last Vital Signs Temp 97.6 F 04/08/23 05:23 Pulse 69 04/08/23 10:00 Resp 18 04/08/23 05:23 BP 91/50 04/08/23 07:56 Pulse Ox 93 L 04/08/23 05:23 O2 Del Method Room Air 04/08/23 05:23 Results Lab Results Lab results: Most recent lab results Calcium 8.5 mg/dL (8.5-10.1) 04/08/23 05:00 Magnesium 2.6 mg/dL (1.8-2.4) H 04/06/23 16:25 Assessment and Plan Assessment and Plan (1) Acute hypokalemia: (2) Dehydration: (3) Laceration of face, multiple sites: (4) Frequent falls: (5) Acute renal failure: Qualifiers: Acute renal failure type: unspecified Qualified Code(s): N17.9 - Acute kidney failure, unspecified (6) Dizziness: (7) Anemia: Qualifiers: Anemia type: due to chronic kidney disease Chronic kidney disease stage: unspecified stage Qualified Code(s): N18.9 - Chronic kidney disease, unspecified; D63.1 - Anemia in chronic kidney disease (8) Hypertension: Qualifiers: Hypertension type: primary hypertension Qualified Code(s): I10 - Essential (primary) hypertension Plan Acute kidney injury, hypokalemia from volume depletion, poor intake with use of HCTZ 25 mg daily and lasix 40 mg daily. 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 Follow BMP in AM, Cr likely back to around baseline -K repletion orders reviewed, agree. Will check Mg in AM. -Hold lasix and HCTZ on discharge. Discussed with pt and family at bedside that he might need lasix 40 mg prn(maybe 3 times a week) on discharge. Needs to monitor BP and volume status with daily weights, assessing for leg edema, etc. Needs follow up with primary rail maintenance worker within 1 month of discharge.
--- NOTE | 2023-04-08 11:59 | SWNOTE1 ---
SW spoke to pt and daughter in law and her . SW went over home health services with pt and family and what they offered. Pt and family are in agreement. They will review list from medicare.gov and let SW know.
--- NOTE | 2023-04-08 13:03 | SWNOTE1 ---
SW spoke with daughter in law in waiting area and they decided on [facility], they reached out to friends. They did speak with SW about pt being depressed and needing counseling as well. Pt's recently, did not have any cousneling. SW let them know we will have nurse come in with HH and a social sciences lecturer who can address the depression and possible counseling. SW to speak with pt as well.
--- NOTE | 2023-04-08 13:48 | SWNOTE1 ---
[facility] able to accept.
[2023-04-08 15:17] LABS: Anion Gap 8.1; BUN Creatinine Ratio 21.9; Calcium 8.7 mg/dL (8.5-10.1); Carbon Dioxide 28.4 mmol/L (21.0-32.0); Chloride 103 mmol/L (98-107); Estimated GFR (African America 34 (>=60); Estimated GFR (Non-African Ame 28 (>=60); Glucose 138 mg/dL (74-106); Potassium 3.5 mmol/L (3.5-5.1); Sodium 136 mmol/L (136-145)
[2023-04-08] MEDS: ACETAMINOPHEN 325 MG TABLET 650 MG PO (15:39)
[2023-04-09] VITALS (8 sets, daily range): BP systolic 154–165; BP diastolic 70–72; PULSE 64–70; RESP 16–18; TEMP 37.2; O2SAT 94; BMI 26.5
[2023-04-09] MEDS: POTASSIUM CHLORIDE 10 MEQ ER TABLET 20 MEQ PO (05:01)
[2023-04-09 05:55] LABS: Basophils Absolute Auto 0.2 10^3/uL (0.0-0.1); Basophils Percent Auto 1.2 % (0.2-2.0); Eosinophils Absolute Auto 0.9 10^3/uL (0.0-0.7); Hematocrit 38.8 % (42.0-54.0); Hemoglobin 12.1 g/dL (14.0-18.0); Immature Granulocytes Abs Auto 0.04 10^3/uL (0.00-0.03); Immature Granulocytes Pct Auto 0.3 % (0.0-0.5); Lymphocytes Absolute Auto 2.4 10^3/uL (1.2-3.8); Mean Corpuscular HGB Conc 31.2 g/dL (29.9-35.2); Mean Corpuscular Volume 89.8 fL (80.0-94.0); Mean Platelet Volume 10.6 fL (9.5-13.5); Monocytes Absolute Auto 1.8 10^3/uL (0.3-0.8); Monocytes Percent Auto 13.9 % (1.7-12.0); Neutrophils Absolute Auto 7.8 10^3/uL (1.4-6.5); Neutrophils Percent Auto 59.6 % (43.0-75.0); Platelet Count 241 10^3/uL (150-450); Red Blood Count 4.32 10^6/uL (4.70-6.10); Red Cell Distribution Width 14.7 % (11.0-15.0)
[2023-04-09 06:14] LABS: Magnesium 2.1 mg/dL (1.8-2.4)
[2023-04-09 06:20] LABS: Alanine Aminotransferase 27 U/L (16-63); Albumin Globulin Ratio 0.7; Albumin Level 2.5 g/dL (3.4-5.0); Alkaline Phosphatase 72 U/L (46-116); Anion Gap 10.2; Aspartate Amino Transferase 19 U/L (15-37); BUN Creatinine Ratio 21.1; Bilirubin Total 0.7 mg/dL (0.2-1.0); Calcium 8.6 mg/dL (8.5-10.1); Carbon Dioxide 25.7 mmol/L (21.0-32.0); Chloride 106 mmol/L (98-107); Estimated GFR (African America 38 (>=60); Estimated GFR (Non-African Ame 31 (>=60); Globulin 3.5 g/dL; Glucose 98 mg/dL (74-106); Potassium 3.9 mmol/L (3.5-5.1); Sodium 138 mmol/L (136-145)
--- NOTE | 2023-04-09 10:54 | PM.NEPPN ---
Progress Note: A&P Assessment and Plan (1) Acute hypokalemia: (2) Dehydration: (3) Laceration of face, multiple sites: (4) Frequent falls: (5) Acute renal failure: Qualifiers: Acute renal failure type: unspecified Qualified Code(s): N17.9 - Acute kidney failure, unspecified (6) Anemia: Qualifiers: Anemia type: due to chronic kidney disease Chronic kidney disease stage: unspecified stage Qualified Code(s): N18.9 - Chronic kidney disease, unspecified; D63.1 - Anemia in chronic kidney disease (7) Hypertension: Qualifiers: Hypertension type: primary hypertension Qualified Code(s): I10 - Essential (primary) hypertension Plan Acute kidney injury, hypokalemia from volume depletion, poor intake with use of HCTZ 25 mg daily and lasix 40 mg daily. 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 -K and Mg reviewed, stable. -Hold lasix and HCTZ on discharge. Discussed with pt and family at bedside that he might need lasix 40 mg prn(maybe 3 times a week) on discharge. Needs to monitor BP and volume status with daily weights, assessing for leg edema, etc. Needs follow up with primary chief of vital statistics within 1 month of discharge.PCP in 2 weeks. If restarting diuretics, will need K supplementation too to avoid hypokalemia -Significantly improved ambulation and orthostasis. Dc garcia for trial of voiding-new garcia and did not have urinary retention on presentation. Subjective Subjective Interval history: Dizziness much improved, walked around with assistance. Tolerating diet, no nausea, vomiting, diarrhea, no chest pain or palpitations. All other systems reviewed and negative. Exam Narrative: Exam Narrative: General appearance: appears stated age, Not in distress, not on O2 HEENT: head atraumatic and normocephalic, no icterus, pallor Chest:Air entry equal, no rales/wheezing Heart: S1S2 nl, no murmurs, normal rate, regular Extremities: no edema Abd: soft, non distended Neuro: AAO X 3 no focal deficits Skin: no visible rash Constitutional: Vital Signs, click to edit/add: Last Vital Signs Temp 99.0 F 04/09/23 04:45 Pulse 70 04/09/23 09:43 Resp 16 04/09/23 04:45 BP 165/70 H 04/09/23 04:45 Pulse Ox 94 L 04/09/23 04:45 O2 Del Method Room Air 04/09/23 04:45 Urinary Catheter Management Urinary Catheter Management Urethral: Cath placed during this visit: yes Urethral indwelling: No Insertion date: 04/06/23 Insertion time: 16:55
[2023-04-09] MEDS: HEPARIN SODIUM (PORCINE) 5,000 UNIT/ML VIAL 5000 UNIT SUBQ (11:41)
[2023-04-09] MEDS: FERROUS SULFATE 325 MG TABLET PO (11:41)
[2023-04-09] MEDS: ATORVASTATIN CALCIUM 20 MG TABLET PO (11:42)
[2023-04-09] MEDS: CARVEDILOL 3.125 MG TABLET PO (11:42)
--- NOTE | 2023-04-09 12:34 | CM.NOTE ---
Rounds made with Dr. Del Cid, pt will discharge to home today with [facility] services to follow pt.
--- NOTE | 2023-04-09 12:44 | P.DS_ITS ---
<Statement entered by Babs Del Cid DO - 04/09/23 17:06> This documentation has been reviewed and approved.The patient has also been seen and evaluated by me as well as the chart, labs. I agree with the above assessment and plan and agree for discharge. DS: Providers Provider Date of admission: 04/06/23 18:10 Primary care physician: SHITAL CRUZ Consults: 04/06/23 Consult to Dietitian Routine Reason For Exam: weight loss Reason for consultation: weight loss 04/07/23 08:58 Consult to Telenephrology Routine Reason for consultation: acute on chronic renal failure, hypokalemia Has provider been notified: No 04/07/23 09:00 Occupational Therapy Eval and Treat Routine Reason for consultation: Eval and treat; Weakness; Falls Has provider been notified: No Physical Therapy Eval and Treat Routine Reason for consultation: Eval and treat; Weakness; Falls Has provider been notified: No Discharging clinician: Maria C Ortega DS: Diagnosis Discharge Diagnosis (1) Dehydration: (2) Orthostatic dizziness: (3) Acute hypokalemia: (4) Laceration of face, multiple sites: (5) Frequent falls: (6) Acute renal failure: Qualifiers: Acute renal failure type: unspecified Qualified Code(s): N17.9 - Acute kidney failure, unspecified (7) Anemia: Qualifiers: Anemia type: due to chronic kidney disease Chronic kidney disease stage: unspecified stage Qualified Code(s): N18.9 - Chronic kidney disease, unspecified; D63.1 - Anemia in chronic kidney disease (8) Hypertension: Qualifiers: Hypertension type: primary hypertension Qualified Code(s): I10 - Essential (primary) hypertension DS: Summary Hospital Course Hospital Course: The patient was admitted with orthostatic dizziness, frequent falls, dehydration, and acute hypokalemia. 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 He was treated with IV fluids for his dehydration and orthostasis. His home diuretics (Lasix and HCTZ) were held. In addition his amlodipine was discontinued and his Coreg was reduced to 3.125 mg twice daily. His potassium was aggressively repleted. Telenephrology was consulted and we appreciate their assistance with the patient's care. They concurred with IV fluid administration and withholding the above medications. His renal funct ion returned to his baseline CKD 3B/4 by the time of discharge. A 2D echo was obtained and final cardiology interpretation is still pending at the time of discharge, however a preliminary read noted preserved LVEF of approximately 55 to 60%. A carotid Doppler study revealed mild left ICA stenosis of 50 to 69% which can be monitored outpatient. 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 An incidental finding of a 2 cm L thyroid lesion was noted on the CT cervical spine. We recommend outpatient follow up with a US Thyroid. The patient's symptoms had nearly completely resolved by the day of discharge. He still noted mild dizziness with initial position changes but this quickly resolves. He ambulated well with PT using a walker during his stay. He is being discharged home in stable condition with the above medication changes continuing at discharge. He will be followed by [facility] for assisted monitoring and continued PT services. He was also prescribed low-dose potassium of 10 miliequivalents daily. We recommend a follow up BMP within one week to monitor his potassium levels. He should follow up with his PCP within 5-7 days, and with his hydro sprayer operator within 1 month. Pt instructions: - Weigh yourself daily and record result. Take weight record to next PCP and Nephrology visit. Call PCP if you gain more than 3#/day or 5#/week. - Check BP daily and record result. Take BP record to next PCP visit - Recommend OP US Thyroid - Recommend BMP in 1-2 weeks - hypokalemia - Neph w/in 1 mo Time Spent with Patient Time attestation: Total time spent providing and/or coordinating discharge services: Time spent: greater than 30 minutes Specific discharge activities: Physical exam, discussion of discharge plan, questions answered. Exam Narrative Exam Narrative: Denies dizziness. Reports mild dizziness with standing. Recommend slow position changes. Constitutional Vital Signs, click to edit/add: Last Vital Signs Temp 99.0 F 04/09/23 04:45 Pulse 69 04/09/23 12:00 Resp 18 04/09/23 11:45 BP 154/72 H 04/09/23 11:45 Pulse Ox 94 L 04/09/23 04:45 O2 Del Method Room Air 04/09/23 04:45 Common normals: no apparent distress, oriented x3 and alert General appearance: cooperative Orientation/consciousness: Yes awake HENMT Common normals: normocephalic and head/scalp atraumatic Eye Common normals: PERRL, EOMs intact bilaterally, conjunctivae normal and no scleral icterus Respiratory Common normals: normal respiratory effort, no use of accessory muscles and clear to auscultation bilaterally Effort & inspection: able to speak in complete sentences and symmetric chest movement GI Common normals: Normal to inspection, nondistended, normoactive bowel sounds present, soft to palpation and non-tender Bladder/kidney exam: bladder normal to palpation Extremity Common normals: normal to inspection, full ROM, normal capillary refill and no pedal edema General: no clubbing and no cyanosis Neuro Common normals: moves all extremities, no focal motor deficits and no sensory deficits noted Speech: speech normal Psych Common normals: mental status grossly normal and activity/motor behavior normal DS: Data Data Completed and Pending Labs on day of discharge: Labs from last 24 hours 04/09/23 04/08/23 05:34 15:02 WBC 13.0 H RBC 4.32 L Hgb 12.1 L Hct 38.8 L MCV 89.8 MCH 28.0 MCHC 31.2 RDW 14.7 Plt Count 241 MPV 10.6 Neut % (Auto) 59.6 Lymph % (Auto) 18.0 L Dickey % (Auto) 13.9 H Eos % (Auto) 7.0 Baso % (Auto) 1.2 Neut # (Auto) 7.8 H Lymph # (Auto) 2.4 Dickey # (Auto) 1.8 H Eos # (Auto) 0.9 H Baso # (Auto) 0.2 H Abs Immat Gran (auto) 0.04 H Imm/Tot Granulo (auto) 0.3 Sodium 138 136 Potassium 3.9 3.5 Chloride 106 103 Carbon Dioxide 25.7 28.4 Anion Gap 10.2 8.1 BUN 43.0 H 49.0 H Creatinine 2.04 H 2.24 H Est GFR ( Amer) 38 L 34 L Est GFR (Non-Af Amer) 31 L 28 L BUN/Creatinine Ratio 21.1 21.9 Glucose 98 138 H Calcium 8.6 8.7 Magnesium 2.1 Total Bilirubin 0.7 AST 19 ALT 27 Alkaline Phosphatase 72 Total Protein 6.0 L Albumin 2.5 L Globulin 3.5 Albumin/Globulin Ratio 0.7 Preliminary micro results at discharge 04/06/23 16:25 - Preliminary Blood NO GROWTH AT 36-48 HOURS. FINAL TO FOLLOW. 04/06/23 16:18 Blood Culture Result 1 - Preliminary Blood NO GROWTH AT 36-48 HOURS. FINAL TO FOLLOW. Discharge Plan Discharge Disposition: Home Health Service Condition: Good Discharge Medications: New carvedilol 3.125 mg Tablet 3.125 mg PO BID Qty: 60 0RF potassium chloride 10 mEq capsule, extended release 10 meq PO DAILY Qty: 30 0RF Continued atorvastatin 20 mg tablet 20 mg PO DAILY ferrous sulfate 325 mg (65 mg iron) tablet,delayed release (DR/EC) 325 mg PO DAILY Discontinued carvedilol 12.5 mg tablet 12.5 mg PO BID furosemide 40 mg tablet 40 mg PO DAILY amlodipine 5 mg tablet 5 mg PO DAILY hydrochlorothiazide 25 mg tablet 25 mg PO DAILY Activity: ambulate only with your walker, as per physical therapy and increase activity as tolerated Diet: advance to your usual diet Patient Instructions: Dehydration (DC), Acute Kidney Injury (DC), Hypokalemia (DC), Head Injury (DC) Activity Restrictions/Additional Instructions: - Weigh yourself daily and record result. Take weight record to next PCP and Nephrology visit. Call PCP if you gain more than 3#/day or 5#/week. - Check BP daily and record result. 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. They should contact within 48 hours of discharge. Phone number for [facility] is [phone]. Forms: Portal Instructions Follow Up Appointments: . Apr. 6 @ 3pm with Viki Norman NP [phone] Sat. May. 5 @ 4:20pm with Dr. Trent Segura office - [facility] Dexter Segura (Urgent Care) [phone] Discharge Date/Time: 04/09/23 13:36
--- NOTE | 2023-04-09 15:07 | SWNOTE1 ---
Discharge orders sent to [facility].
--- NOTE | 2023-04-10 15:06 | CM.DCFOLLOWU ---
1st attempt. No response
--- NOTE | 2023-04-10 15:07 | CM.DCFOLLOWU ---
1st attempt. No answer
--- NOTE | 2023-04-11 15:50 | CM.DCFOLLOWU ---
Person spoke with: Trell How are you feeling? Much better How is your pain? No pain Did you understand your discharge instructions? Yes Do you have any questions about your discharge instructions? No Were you given any prescriptions at discharge? Yes Were you able to get your prescriptions filled? Yes Do you understand how to take your medications as ordered? Yes Do you have any questions about your follow up appointment and do you plan to keep your follow up appointment? No and I will go to my appt Is there anything else that you would like to discuss? No Questions/Comments/Concerns/Other:
== END 2023-04-09 13:36 | disposition home health service (06) | DRG 683 ==
LOC: ER 17:32 → MS 18:13
PROVIDERS: Physician Assistant; Registered Nurse; Admitting Provider Family Medicine; Emergency Provider Emergency Medicine; PCP Family Medicine; Visit Provider Nurse Practitioner
DX: N17.9 Acute kidney failure, unspecified (principal); N39.0 Urinary tract infection, site not specified; E87.6 Hypokalemia; N18.4 Chronic kidney disease, stage 4 (severe); E86.0 Dehydration; R42 Dizziness and giddiness; I12.9 Hypertensive chronic kidney disease with stage 1 through stage 4 chronic kidney disease, or unspecified chronic kidney disease; D63.1 Anemia in chronic kidney disease; S01.81XA Laceration without foreign body of other part of head, initial encounter; S02.2XXA Fracture of nasal bones, initial encounter for closed fracture; I95.1 Orthostatic hypotension; I65.22 Occlusion and stenosis of left carotid artery; W19.XXXA Unspecified fall, initial encounter; Z87.891 Personal history of nicotine dependence; Z96.653 Presence of artificial knee joint, bilateral; Z79.899 Other long term (current) drug therapy; Z91.81 History of falling; Z23 Encounter for immunization
CPT/HCPCS: 0202U; 36415; 51702; 70450; 70486; 71045; 72125; 72170; 73564; 80048; 80053; 81001; 82800; 83605; 83735; 84145; 84484; 85007; 85025; 85027; 85610; 85730; 87040; 87798; 87804; 87811; 90471; 90715; 93005; 93306; 93880; 96361; 96365; 96366; 96368; 96372; 97161; 97165; 97530; 97535; 99285; J0696; J3480; Q3014

== ENCOUNTER 2023-05-28 10:39 | Day surgery (SDC) | payer MEDICARE, OTHER, SELFPAY ==
--- NOTE | 2023-05-28 10:47 | US_ITS ---
[address] [address] Patient Name: ASIA KING MRN: [id number] date: 1940 Sex: M Assigned Patient Location: US Current Patient Location: US Accession/Order Number: [id number] Exam Date: 05/28/2023 11:10 Report Date: 05/28/2023 12:10 At the request of: SHARMILA HERNANDEZ Procedure: US biopsy thyroid EXAMINATION: US biopsy thyroid HISTORY: Thyroid Nodule COMPARISON: No relevant comparison available. TECHNIQUE: After obtaining informed consent, an ultrasound-guided biopsy was performed in the usual sterile manner. FINDINGS: IMAGING: Ultrasound BIOPSY NEEDLE: 25-gauge 2 inch SPECIMEN TYPE, #, LOCATION: 4 fine-needle aspirates. Left thyroid 2.5 cm nodule MEDICATION: 2 cc 1% buffered lidocaine COMPLICATIONS: None. LABORATORY: Pathology and molecular studies OTHER: Negative. US/US biopsy thyroid IMPRESSION: Uneventful ultrasound guided biopsy. The patient was instructed to obtain follow up care and biopsy results from the referring physician. Electronically authenticated by: JAVON WILSON Date: 05/28/2023 12:10
[2023-05-28 10:55] VITALS: BP 173/90; PULSE 69; O2SAT 98
[2023-05-28] MEDS: LIDOCAINE HCL 10 ML, SODIUM BICARBONATE 1 MEQ INJ (11:30)
--- NOTE | 2023-05-28 12:53 | SUR.PREOP ---
05/24/23 Pt instructed on date, time, prep, and procedure.
== END 2023-05-28 12:00 | disposition home or self-care (01) ==
LOC: US 10:41
PROVIDERS: Radiology Diagnostic Radiology; PCP Family Medicine; Visit Provider Otolaryngology
DX: E04.1 Nontoxic single thyroid nodule (principal)
CPT/HCPCS: 10005; 99999

== ENCOUNTER 2024-09-15 11:17 | Outpatient (OUT) | payer MEDICARE, OTHER, SELFPAY ==
--- NOTE | 2024-09-15 11:19 | US_ITS ---
The [address] [address] Patient Name: ASIA KING MRN: [id number] date: 1940 Sex: M Assigned Patient Location: US Current Patient Location: US Accession/Order Number: [id number] Exam Date: 09/15/2024 15:28 Report Date: 09/15/2024 15:31 At the request of: SHARMILA HERNANDEZ MD Procedure: US thyroid Thyroid Ultrasound HISTORY: Follow-up thyroid nodules COMPARISON: 04/23/2023 The RIGHT lobe measures 3.5 x 1.7 x 1.5cm. LEFT lobe measures 4.2 x 2.1 x 2.3 cm. Isthmus has an AP dimension of 0.5cm. Left millimeter right superior solid isoechoic nodule identified. 1.1 cm right inferior solid hypoechoic nodule identified. 4 mm right mid cystic nodule identified. 2.7 cm left mid solid hypoechoic nodule identified.. No microcalcifications identified. Symmetric blood flow of the thyroid gland identified. US/US thyroid IMPRESSION: Similar bilateral thyroid nodules. One-year follow-up assessment recommended. Impression dictated by: Jose Arenas M.D. 09/15/2024 3:31 PM Dictation Location: [place] [address] Electronically authenticated by: [id number] Y Date: 09/15/2024 15:31
--- OUTSIDE RECORDS SUMMARY | 2024-09-15 11:19 | XMS_ITS | Encounter Summary ---
Author Organization [facility] Address [address] [place] [address] Care Team Providers Care Rubber Roller Grinder Name Role Phone Biju Stone MD Primary Care Provider [phone] Biju Stone MD Unavailable Camryn Foster RN Unavailable [phone] Encounter Details Date Type Department Care Team (Late st Contact Info) Description 04/08/2023 Abstract [facility] 112 [facility] 110 [place] [id number] Biju Stone MD 112 [facility] 110 [place], [place] [id number] Social History Tobacco Use Types Packs/Day Years Used Date Smoking Tobacco: Former Cigarettes Q uit: 03/11/1976 Smokeless Tobacco: Never Alcohol Use Standard Drinks/Week Comments Yes 1 (1 standard drink = 0.6 oz pur e alcohol) Humiliation, Afraid, Rape, and Kick questionnair e Answer Date Recorded Within the last year, have y ou been afraid of your partner or ex-partner? Patient declined 12/04/2022 Within the last year, have y ou been humiliated or emotionally abused in other ways by your partner or ex-partner? Patient declined 12/04/2022 Within the last year, have y ou been kicked, hit, slapped, or otherwise physically hurt by your partner or ex-partner? Patient declined 12/04/2022 Within the last year, have y ou been raped or forced to have any kind of sexual activity by your partner or ex-partner? Patient declined 12/04/2022 Social Connection and Isolation Panel [NHANES] A nswer Date Recorded In a typical week, how many times do you talk on the phone with family, friends, or neighbors? Twice a week 12/05/19 How often do you get togethe r with friends or relatives? Three times a week 12/04/2022 How often do you attend chur or congregational services? 1 to 4 times per year 12/04/2022 Do you belong to any clubs o r organizations such as rastafari groups, unions, fraternal or athletic groups, or school groups? Patient declined 12/04/2022 How often do you attend meet ings of the clubs or organizations you belong to? Patient declined 12/04/2022 Are you , , di vorced, , never , or living with a partner? Patient declined 12/04/2022 AUDIT-C Answer Date Recorded Q1: How often do you have a drink containing alc ohol? 2-4 times a month 02/18/2023 Q2: How many drinks containi ng alcohol do you have on a typical day when you are drinking? 1 or 2 02/18/2023 Q3: How often do you have si x or more drinks on one occasion? Never 02/18/2023 Overall Financial Resource Strain (CARDIA) Answe r Date Recorded How hard is it for you to pa y for the very basics like food, housing, medical care, and heating? Not hard at all 12/04/2022 PHQ-2 Answer Date Recorded Patient Health Questionnaire-2 Score 0 02/04/2023 [facility] Occupat ional Health - Occupational Stress Questionnaire Answer Date Recorded Do you feel stress - tense, restless, nervous, or anxious, or unable to sleep at night because your mind is troubled all the time - these days? Only a little 12/04/2022 Exercise Vital Sign Answer Date Recorde d On average, how many days pe r week do you engage in moderate to strenuous exercise (like a brisk walk)? 3 days 12/04/2022 On average, how many minutes do you engage in exercise at this level? 10 min 12/04/2022 Hunger Vital Sign Answer Date Recorded Within the past 12 months, y ou worried that your food would run out before you got the money to buy more. Never true 12/05/19 23 Within the past 12 months, t he food you bought just didn't last and you didn't have money to get more. Never true 12/04/2022 PRAPARE - Transportation Answer Date Re corded In the past 12 months, has l ack of transportation kept you from medical appointments or from getting medications? No 11/10 In the past 12 months, has l ack of transportation kept you from meetings, work, or from getting things needed for daily living? No 12/04/2022 Housing Stability Vital Sign Answer Tr e Recorded In the last 12 months, was t here a time when you were not able to pay the mortgage or rent on time? No 12/04/2022 In the last 12 months, how many places have you lived? 1 12/04/2022 In the last 12 months, was t here a time when you did not have a steady place to sleep or slept in a usp (including now)? No 12/04/2022 Sex and Gender Information Value Date Recorded Sex Assigned at Not on file Legal Sex Male 11:19 PM EDT Gender Identity Male 03/12/2023 10:39 AM EST Sexual Orientation Not on file documented as of this encounter Plan of Treatment Upcoming Encounters Date Type Department Care Team (Late st Contact Info) Description 09/15/2024 2:30 PM EDT Office Visit [facility] [address] [facility] [address] [place] [id number] Biju Stone MD [address] [facility] [address] [place] [address] 09/28/2024 11:20 AM EDT Office Visit [facility] [address] [facility] [address] [place] [phone] Leni Ruggiero MD [address] [facility] [address] [place] [address] 01/07/2025 1:00 PM EDT Office Visit [facility] [address] [place] [address] Paresh Lagunas, CLOTHES IRONER [address] [place], [place] [id number] documented as of this encounter Visit Diagnoses Not on filedocumented in this encounter Care Teams Rubber Roller Grinder Relationship Specialty Start Date End Date Biju Stone MD [address] [facility] [address] [place] [address] PCP - General Family Medicine 07/10/22 Biju Stone MD [address] [facility] [address] [place] [address] PCP - ACO Reach 08/02/22 Camryn Foster, RN [address] [facility] [address] [place] [address] Registered Nurse Family Medicine 04/10/23 documented as of this encounter
--- OUTSIDE RECORDS SUMMARY | 2024-09-15 11:19 | XMS_ITS | Encounter Summary ---
Author Organization [facility] Address [address] [place] [address] Care Team Providers Care Evp [employer]imedia Sales Name Role Phone Biju Stone MD Primary Care Provider [phone] Biju Stone MD Unavailable Camryn Foster RN Unavailable [phone] Encounter Details Date Type Department Care Team (Late st Contact Info) Description 04/09/2023 Orders Only [facility] [address] [facility] [address] [place] [address] Unallocated, Noms Provider, [address] [place], [place] [id number] Social History Tobacco Use Types Packs/Day Years [...] How often do you attend chur or jewish services? 1 to 4 times per year 12/04/2022 Do you belong to any clubs o r organizations such as scientologist groups, unions, fraternal or athletic groups, or [...] Recorded Patient Health Questionnaire-2 Score 0 02/04/2023 [facility] [place] of Occupat ional Health - Occupational Stress [...] place to sleep or slept in a intermediate (including now)? No 12/04/2022 Sex and Gender [...] Visit [facility] [address] [facility] [address] [place] [phone] Biju Stone MD [address] [facility] [address] [place] [address] 09/28/2024 11:20 AM EDT Office Visit [facility] [address] [facility] [address] [place] [phone] Leni Ruggiero MD [address] [facility] [address] [place] [address] 01/07/2025 1:00 PM EDT Office Visit [facility] [address] [place] [phone] Paresh Lagunas, WALKING DRAGLINE OILER [address] [place], [place] [phone] documented as of this encounter Procedures Procedure Name Priority Date/Time Associated Diagnosis Comments VASC US CAROTID ARTERY DUPLEX BILATERAL Routine 04/06/2023 8:07 AM EST documented in this encounter Results * Vascular US carotid artery duplex bilateral (04/06/2023 8:07 AM EST) Anatomical Region Laterality Modality Neck Ultrasound us Noms Provider Unallocated IMPhillip US PROCEDURES F inal Result documented in this encounter Visit Diagnoses Not on filedocumented in this encounter Care Teams Evp [employer] Multimedia Sales Relationship Specialty Start Date End Date Biju Stone MD [address] [facility] 110 [place] [address] PCP - General Family Medicine 07/10/22 Biju Stone MD [address] [facility] 110 [place] [address] PCP - ACO Reach 08/02/22 Camryn Foster, EDUARDO [address] [facility] [address] [place] [address] Registered Nurse Family Medicine 04/10/23 documented as of this encounter
--- OUTSIDE RECORDS SUMMARY | 2024-09-15 11:19 | XMS_ITS | Encounter Summary ---
Author Organization [facility] Address [address] [place] [address] Care Team Providers Care Funeral Director'S Assistant Name Role Phone Biju Stone MD Primary Care Provider [phone] Biju Stone MD Unavailable Camryn Foster RN Unavailable [phone] Encounter Details Date Type Department Care Team (Late st Contact Info) Description 04/10/2023 Orders Only [facility] [address] [facility] [address] [place] [address] A, Unknown Practice [address] [place] [address] Social History Tobacco Use Types Packs/Day Years [...] How often do you attend chur or advent services? 1 to 4 times per year 12/04/2022 Do you belong to any clubs o r organizations such as jainism groups, unions, fraternal or athletic groups, or [...] place to sleep or slept in a senior living (including now)? No 12/04/2022 Sex and Gender [...] Visit [facility] [address] [facility] [address] [place] [phone] Biju Stone MD [address] [facility] [address] [place] [address] 09/28/2024 11:20 AM EDT Office Visit [facility] [address] [facility] [address] [place] [phone] Leni Ruggiero MD [address] [facility] [address] [place] [address] 01/07/2025 1:00 PM EDT Office Visit [facility] [address] [place] [address] Paresh Lagunas, PERFORATING MACHINE OPERATOR [address] [place], [place] [id number] documented as of this encounter Procedures Procedure Name Priority Date/Time Associated Diagnosis Comments ECHOCARDIOGRAM WITH DOPPLER IF INDICATED Routine 04/06/2023 9:06 AM EST documented in this encounter Results * ECHOCARDIOGRAM WITH DOPPLER IF INDICATED (04/06/2023 9:06 AM EST) Anatomical Region Laterality Modality Radiographic Adriana ging us Unknown Practice A IMG XR PROCEDURES Final Resul t documented in this encounter Visit Diagnoses Not on filedocumented in this encounter Care Teams Funeral Director'S Assistant Relationship Specialty Start Date End Date Biju Stone MD 112 [facility] 110 [place] [address] PCP - General Family Medicine 07/10/22 Biju Stone MD [address] [facility] [address] [place] [address] PCP - ACO Reach 08/02/22 Camryn Foster, EDUARDO [address] [facility] [address] [place] [address] Registered Nurse Family Medicine 04/10/23 documented as of this encounter
--- OUTSIDE RECORDS SUMMARY | 2024-09-15 11:19 | XMS_ITS | Encounter Summary ---
Author Organization [facility] Address [address] [place] [address] Care Team Providers Care Corporate Counselor Name Role Phone Biju Stone MD Primary Care Provider [phone] Biju Stone MD Unavailable Camryn Foster RN Unavailable [phone] Encounter Details Date Type Department Care Team (Late st Contact Info) Description 04/17/2023 Abstract [facility] 112 [facility] 110 [place] [address] Biju Stone MD 112 [facility] 110 [place], [place] [address] Social History Tobacco Use Types Packs/Day Years [...] How often do you attend chur or restorationist services? 1 to 4 times per year 12/04/2022 Do you belong to any clubs o r organizations such as catholic groups, unions, fraternal or athletic groups, or [...] Recorded Patient Health Questionnaire-2 Score 0 02/04/2023 [facility] of Occupat ional Health - [...] to sleep or slept in a senior care (including now)? No 12/04/2022 Sex and Gender [...] Visit [facility] [address] [facility] 110 [place] [phone] Biju Stone MD [address] [facility] 110 [place] [address] 09/28/2024 11:20 AM EDT Office Visit [facility] [address] [facility] [address] [place] [address] Leni Ruggiero MD [address] [facility] [address] [place] [address] 01/07/2025 1:00 PM EDT Office Visit [facility] [address] [place] [address] Paresh Lagunas, SOFA INSPECTOR [address] [place], [place] [address] documented as of this encounter Visit Diagnoses Not on filedocumented in this encounter Care Teams Corporate Counselor Relationship Specialty Start Date End Date Biju Stone MD [address] [facility] [address] [place] [address] PCP - General Family Medicine 07/10/22 Biju Stone MD [address] [facility] 110 [place] [address] PCP - ACO Reach 08/02/22 Camryn Foster, RN [address] [facility] 230 [place] [address] Registered Nurse Family Medicine 04/10/23 documented as of this encounter
--- OUTSIDE RECORDS SUMMARY | 2024-09-15 11:19 | XMS_ITS | Encounter Summary ---
Author Organization [facility] Address [address] [place] [address] Care Team Providers Care Temporary Office Assistant Name Role Phone Biju Stone MD Primary Care Provider [phone] Biju Stone MD Unavailable Camryn Foster RN Unavailable [phone] Encounter Details Date Type Department Care Team (Late st Contact Info) Description 03/20/2023 Abstract [facility] 112 [facility] 110 [place] [address] Biju Stone MD 112 [facility] 110 [place], [place] [id number] Social History Tobacco Use Types Packs/Day Years [...] How often do you attend chur or cheondoism services? 1 to 4 times per year 12/04/2022 Do you belong to any clubs o r organizations such as zoroastrian groups, unions, fraternal or athletic groups, or [...] Recorded Patient Health Questionnaire-2 Score 0 02/04/2023 [facility] of Occupat ional Health - Occupational Stress [...] Visit [facility] [address] [facility] 110 [place] [phone] Biju Stone MD [address] [facility] [address] [place] [address] 09/28/2024 11:20 AM EDT Office Visit [facility] [address] [facility] 130 [place] [address] Leni Ruggiero MD [address] [facility] [address] [place] [address] 01/07/2025 1:00 PM EDT Office Visit [facility] [address] [place] [address] Paresh Lagunas, DESKTOP SUPPORT MANAGER [address] [place], [place] [address] documented as of this encounter Visit Diagnoses Not on filedocumented in this encounter Care Teams Temporary Office Assistant Relationship Specialty Start Date End Date Biju Stone MD [address] [facility] 110 [place] [address] PCP - General Family Medicine 07/10/22 Biju Stone MD [address] [facility] 110 [place] [address] PCP - ACO Reach 08/02/22 Camryn Foster, RN [address] [facility] 230 [place] [address] Registered Nurse Family Medicine 04/10/23 documented as of this encounter
--- OUTSIDE RECORDS SUMMARY | 2024-09-15 11:19 | XMS_ITS | Encounter Summary ---
Author Organization [facility] Address [address] [place] [address] Care Team Providers Care Splitter Hand Name Role Phone Biju Stone MD Primary Care Provider [phone] Biju Stone MD Unavailable Camryn Foster RN Unavailable [phone] Encounter Details Date Type Department Care Team (Late st Contact Info) Description 04/08/2023 Orders Only [facility] [address] [facility] 110 [place] [address] A, Unknown Practice [address] [place] [address] Social History Tobacco Use Types [...] How often do you attend chur or gnosticism services? 1 to 4 times per year 12/04/2022 Do you belong to any clubs o r organizations such as mandaeism groups, unions, fraternal or athletic groups, or [...] Recorded Patient Health Questionnaire-2 Score 0 02/04/2023 [facility] of Occupat ional Health - Occupational [...] place to sleep or slept in a assisted (including now)? No 12/04/2022 Sex and Gender [...] Visit [facility] [address] [facility] 110 [place] [address] Biju Stone MD [address] [facility] 110 [place] [address] 09/28/2024 11:20 AM EDT Office Visit [facility] [address] [facility] 130 [place] [phone] Leni Ruggiero MD [address] [facility] 130 [place] [address] 01/07/2025 1:00 PM EDT Office Visit [facility] [address] [place] [address] Paresh Lagunas, NURSE COMPANION [address] [place], [place] [phone] documented as of this encounter Procedures Procedure Name Priority Date/Time Associated Diagnosis Comments ELECTROCARDIOGRAM REPORT Routine 024 10:51 AM EST XR CHEST 1 VIEW Routine 04/06/2023 10:[address] FACIAL BONES WOUT CONTRAST Routine 04/06/2023 9:19 AM EST XR PELVIS 1-2 VIEWS Routine 04/06/2023 9 :[address] HEAD/BRAIN W & WO CONTRAST Routine 04/06/2023 8:43 AM EST XR KNEE 4+ VIEWS RIGHT Routine 8:09 AM EST documented in this encounter Results * Electrocardiogram Report (04/06/2023 10:51 AM EST) us Unknown Practice A IN CLINIC/BEDSIDE ORDERABLES Final Result * XR chest 1 view (04/06/2023 10:17 AM EST) Anatomical Region Laterality Modality Chest Radiographic Adriana ging us Unknown Practice A IMG XR PROCEDURES Final Resul t * CT FACIAL BONES WOUT CONTRAST (04/06/2023 9:19 AM EST) Anatomical Region Laterality Modality Radiographic Adriana ging us Unknown Practice A IMG XR PROCEDURES Final Resul t * XR pelvis 1 or 2 views (04/06/2023 9:14 AM EST) Anatomical Region Laterality Modality Body, Pelvis Radiographic Adriana ging us Unknown Practice A IMG XR PROCEDURES Final Resul t * CT HEAD/BRAIN W & WO CONTRAST (04/06/2023 8:43 AM EST) Anatomical Region Laterality Modality Radiographic Adriana ging us Unknown Practice A IMG XR PROCEDURES Final Resul t * XR knee 4+ views right (04/06/2023 8:09 AM EST) Anatomical Region Laterality Modality Lower Extremities, Knee Right Radiogra phic Imaging us Unknown Practice A IMG XR PROCEDURES Final Resul t documented in this encounter Visit Diagnoses Not on filedocumented in this encounter Care Teams Splitter Hand Relationship Specialty Start Date End Date Biju Stone MD [address] [facility] 110 [place] [address] PCP - General Family Medicine 07/10/22 Biju Stone MD [address] [facility] 110 [place] [address] PCP - ACO Reach 08/02/22 Camryn Foster, EDUARDO [address] [facility] 230 [place] [address] Registered Nurse Family Medicine 04/10/23 documented as of this encounter
--- OUTSIDE RECORDS SUMMARY | 2024-09-15 11:19 | XMS_ITS | Encounter Summary ---
Author Organization [facility] Address [address] [place] [address] Care Team Providers Care Shopper Insights Manager Name Role Phone Biju Stone MD Primary Care Provider [phone] Biju Stone MD Unavailable Camryn Foster RN Unavailable [phone] Encounter Details Date Type Department Care Team (Late st Contact Info) Description 03/13/2023 Abstract [facility] 112 [facility] 110 [place] [address] Biju Stone MD 112 [facility] 110 [place], [place] [address] Social History Tobacco Use Types Packs/Day Years [...] How often do you attend chur or religion services? 1 to 4 times per year 12/04/2022 Do you belong to any clubs o r organizations such as adventism groups, unions, fraternal or athletic groups, or [...] Recorded Patient Health Questionnaire-2 Score 0 02/04/2023 [facility] of Occupat ional Health - Occupational [...] place to sleep or slept in a alf (including now)? No 12/04/2022 Sex and Gender [...] Visit [facility] [address] [facility] 110 [place] [phone] Biju Stone MD [address] [facility] 110 [place] [address] 09/28/2024 11:20 AM EDT Office Visit [facility] [address] [facility] 130 [place] [address] Leni Ruggiero MD [address] [facility] [address] [place] [address] 01/07/2025 1:00 PM EDT Office Visit [facility] [address] [place] [address] Paresh Lagunas, AT RISK PARAPROFESSIONAL [address] [place], [place] [address] documented as of this encounter Visit Diagnoses Not on filedocumented in this encounter Care Teams Shopper Insights Manager Relationship Specialty Start Date End Date Biju Stone MD [address] [facility] 110 [place] [address] PCP - General Family Medicine 07/10/22 Biju Stone MD [address] [facility] 110 [place] [address] PCP - ACO Reach 08/02/22 Camryn Foster, RN [address] [facility] 230 [place] [address] Registered Nurse Family Medicine 04/10/23 documented as of this encounter
--- OUTSIDE RECORDS SUMMARY | 2024-09-15 11:19 | XMS_ITS | Encounter Summary ---
Author Organization [facility] Address [address] [place] [address] Care Team Providers Care System Software Programmer Name Role Phone Biju Stone MD Primary Care Provider [phone] Biju Stone MD Unavailable Camryn Foster RN Unavailable [phone] Encounter Details Date Type Department Care Team (Late st Contact Info) Description 04/08/2023 Abstract [facility] 112 [facility] 110 [place] [address] Biju Stone MD 112 [facility] 110 [place], [place] [address] Social History Tobacco Use Types Packs/Day Years [...] any clubs o r organizations such as orthodoxy groups, unions, fraternal or athletic groups, or [...] Recorded Patient Health Questionnaire-2 Score 0 02/04/2023 [facility] of Occupat ional Health - Occupational [...] Visit [facility] [address] [facility] [address] [place] [address] Biuj Stone MD [address] [facility] 110 [place] [address] 09/28/2024 11:20 AM EDT Office Visit [facility] [address] [facility] 130 [place] [address] Leni Ruggiero MD [address] [facility] 130 [place] [address] 01/07/2025 1:00 PM EDT Office Visit [facility] [address] [place] [address] Paresh Lgaunas, EXERCISE EQUIPMENT REPAIR TECHNICIAN [address] [place], [place] [address] documented as of this encounter Visit Diagnoses Not on filedocumented in this encounter Care Teams System Software Programmer Relationship Specialty Start Date End Date Biju Stone MD [address] [facility] 110 [place] [address] PCP - General Family Medicine 07/10/22 Biju Stone MD [address] [facility] 110 [place] [address] PCP - ACO Reach 08/02/22 Camryn Foster, RN [address] [facility] 230 [place] [address] Registered Nurse Family Medicine 04/10/23 documented as of this encounter
--- OUTSIDE RECORDS SUMMARY | 2024-09-15 11:19 | XMS_ITS ---
Author Organization [facility] Address [address] [facility] [place] [address] Care Team Providers Care Denture Packer Name Role Phone Biju Stone MD Primary Care Provider [phone] Biju Stone MD Unavailable Camryn Foster RN Unavailable [phone] Chronic Care Management (CCM) Status:Enrolled (Active) Start date:04/10/2023 Enrollment date:04/10/2023 Overview Please assess for Care Management needs. <April 10, 2023, 12:30 PM - Camryn Foster RN> enrolled in CCM 04/10/23, 12:30 PM - Camryn Foster RN- Patient gives verbal consent to be enrolled in CCM Program and understands there could be a bill for this service. CCM Bill NO 07/13/2024-SPV VYTALIZE PATIENT Case Team Name Relationship Phone Camryn Foster RN(Responsible Staff) Registere d Nurse [phone] Continued Care and Services Coordination
--- OUTSIDE RECORDS SUMMARY | 2024-09-15 11:19 | XMS_ITS | Encounter Summary ---
Author Organization [facility] Address [address] [place] [address] Care Team Providers Care Park Manager Name Role Phone Biju Stone MD Primary Care Provider [phone] Biju Stone MD Unavailable Camryn Foster RN Unavailable [phone] Encounter Details Date Type Department Care Team (Late st Contact Info) Description 04/17/2023 Abstract [facility] 112 [facility] 110 [place] [address] Biju Stone MD 112 [facility] 110 [place], [place] [address] Social History Tobacco Use Types Packs/Day Years [...] How often do you attend chur or voodoo services? 1 to 4 times per year 12/04/2022 Do you belong to any clubs o r organizations such as latter day groups, unions, fraternal or athletic groups, or [...] Recorded Patient Health Questionnaire-2 Score 0 02/04/2023 [facility] of Occupat ional Health - Occupational Stress [...] place to sleep or slept in a mcc (including now)? No 12/04/2022 Sex and Gender [...] CI FM [address] [facility] 110 [place] [address] Biju Stone MD [address] [facility] 110 [place] [address] 09/28/2024 11:20 AM EDT Office Visit [facility] [address] [facility] [address] [place] [address] Leni Ruggiero MD [address] [facility] [address] [place] [address] 01/07/2025 1:00 PM EDT Office Visit [facility] [address] [place] [address] Paresh Lagunas, HAIR SPINNER [address] [place], [place] [address] documented as of this encounter Visit Diagnoses Not on filedocumented in this encounter Care Teams Park Manager Relationship Specialty Start Date End Date Biju Stone MD [address] [facility] 110 [place] [address] PCP - General Family Medicine 07/10/22 Biju Stone MD [address] [facility] 110 [place] [address] PCP - ACO Reach 08/02/22 Camryn Foster, RN [address] [facility] 230 [place] [address] Registered Nurse Family Medicine 04/10/23 documented as of this encounter
--- OUTSIDE RECORDS SUMMARY | 2024-09-15 11:20 | XMS_ITS | Encounter Summary ---
Author Organization [facility] Address [address] [place] [address] Care Team Providers Care Timber Inspector Name Role Phone Biju Stone MD Primary Care Provider Biju Stone MD Unavailable Camryn Foster RN Unavailable [phone] Encounter Details Date Type Department Care Team (Late st Contact Info) Description 04/10/2023 Abstract [facility] [address] [facility] 110 [place] [address] Biju Stone MD 112 [facility] 110 [place], [place] [address] Social History Tobacco Use Types Packs/Day Years [...] How often do you attend chur or yazidi services? 1 to 4 times per year 12/04/2022 Do you belong to any clubs o r organizations such as religion groups, unions, fraternal or athletic groups, or [...] Recorded Patient Health Questionnaire-2 Score 0 02/04/2023 [facility] of Occupat ional Health - Occupational [...] place to sleep or slept in a nursing home (including now)? No 12/04/2022 Sex and Gender [...] Visit [facility] [address] [facility] 110 [place] [address] Biju Stone MD [address] [facility] 110 [place] [address] 09/28/2024 11:20 AM EDT Office Visit [facility] [address] [facility] [address] [place] [address] Leni Ruggiero MD [address] [facility] [address] [place] [address] 01/07/2025 1:00 PM EDT Office Visit [facility] [address] [place] [address] Paresh Lagunas, PROFESSOR OF VOICE [address] [place], [place] [address] documented as of this encounter Visit Diagnoses Not on filedocumented in this encounter Care Teams Timber Inspector Relationship Specialty Start Date End Date Biju Stone MD [address] [facility] 110 [place] [address] PCP - General Family Medicine 07/10/22 Biju Stone MD [address] [facility] 110 [place] [address] PCP - ACO Reach 08/02/22 Camryn Foster, RN [address] [facility] 230 [place] [address] Registered Nurse Family Medicine 04/10/23 documented as of this encounter
--- OUTSIDE RECORDS SUMMARY | 2024-09-15 11:20 | XMS_ITS | Encounter Summary ---
Author Organization [facility] Address [address] [place] [address] Care Team Providers Care Assembler Mechanical Ordnance Name Role Phone Biju Stone MD Primary Care Provider [phone] Biju Stone MD Unavailable Camryn Foster RN Unavailable [phone] Encounter Details Date Type Department Care Team (Late st Contact Info) Description 12/12/2022 Orders Only [facility] [address] [facility] 110 [place] [address] A, Unknown Practice [address] [place] [address] Social History Tobacco Use Types Packs/Day Years Used Date Smoking Tobacco: Former Cigarettes Q uit: 03/11/1976 Smokeless Tobacco: Never Alcohol Use Standard Drinks/Week Comments Yes 1 (1 standard drink = 0.6 oz pur e alcohol) 2-4 times a month Humiliation, Afraid, Rape, and Kick questionnair e [...] week 12/04/2022 How often do you attend [facility] or scientologist services? 1 to 4 times per year 12/04/2022 Do you belong to any clubs o r organizations such as lutheran groups, unions, fraternal or athletic groups, or school groups? Patient declined 12/04/2022 How often do you attend meet ings of the clubs or organizations you belong to? Patient declined 12/04/2022 Are you , , di vorced, , never , or living with a partner? Patient declined 12/04/2022 AUDIT-C Answer Date Recorded Q1: How often do you have a drink containing alc ohol? Never 12/04/2022 Q2: How many drinks containi ng alcohol do you have on a typical day when you are drinking? 1 or 2 12/04/2022 Q3: How often do you have six or more drinks on one occasion? Never 12/04/2022 Overall Financial Resource Strain (CARDIA) Answe r Date Recorded How hard is it for you to pa y for the very basics like food, housing, medical care, and heating? Not hard at all 12/04/2022 PHQ-2 Answer Date Recorded Patient Health Questionnaire-2 Score 0 08/02/2022 [facility] of Occupat ional Health - Occupational Stress [...] AM EST Sexual Orientation Not on file COVID-19 Exposure Response Date Recorded In the last 10 days, have yo u been in contact with someone who was confirmed or suspected to have Coronavirus/COVID-19? No / Unsure 12/04/2022 11:31 AM EDT documented as of this encounter Plan of Treatment Upcoming Encounters Date Type Department Care Team (Late st Contact Info) Description 09/15/2024 2:30 PM EDT Office Visit [facility] [address] [facility] [address] [place] [address] Biju Stone MD [address] [facility] [address] [place] [address] 09/28/2024 11:20 AM EDT Office Visit [facility] [address] [facility] [address] [place] [address] Leni Ruggiero MD [address] [facility] [address] [place] [address] 01/07/2025 1:00 PM EDT Office Visit [facility] [address] [place] [address] Paresh Lagunas, MICHELE [address] [place], [place] [address] documented as of this encounter Procedures Procedure Name Priority Date/Time Associated Diagnosis Comments SCANNED LABS Routine 12/07/2022 10:37 AM EDT documented in this encounter Results * SCANNED LABS (12/07/2022 10:37 AM EDT) us Unknown Practice A LAB CHG PERFORMABLES Final Re sult documented in this encounter Visit Diagnoses Not on filedocumented in this encounter Care Teams Assembler Mechanical Ordnance Relationship Specialty Start Date End Date Biju Stone MD [address] [facility] 110 [place] [address] PCP - General Family Medicine 07/10/22 Biju Stone MD [address] [facility] 110 [place] [address] PCP - ACO Reach 08/02/22 Camryn Foster, RN [address] [facility] 230 [place] [address] Registered Nurse Family Medicine 04/10/23 documented as of this encounter
--- OUTSIDE RECORDS SUMMARY | 2024-09-15 11:20 | XMS_ITS | Encounter Summary ---
Author Organization [facility] Address [address] [place] [address] Care Team Providers Care Service Cleaner Name Role Phone Biju Stone MD Primary Care Provider [phone] Biju Stone MD Unavailable Camryn Foster RN Unavailable Encounter Details Date Type Department Care Team (Late st Contact Info) Description 09/02/2023 Abstract [facility] 112 [facility] 110 [place] [address] Biju Stone MD 112 [facility] 110 [place], [place] [id number] Social History Tobacco Use Types Packs/Day Years Used Date Smoking Tobacco: Former Cigarettes 2 16.4 0 10/10/1959 - 03/11/1976 Smokeless Tobacco: Never Comments:Loved it Alcohol Use Standard Drinks/Week Comments Not Currently 1 (1 standard drink = 0.6 oz [...] How often do you attend chur or jainism services? 1 to 4 times per year 12/04/2022 Do you belong to any clubs o r organizations such as temple groups, unions, fraternal or athletic groups, or [...] Recorded Patient Health Questionnaire-2 Score 0 02/04/2023 [facility] [place] of Occupat ional Health - Occupational Stress [...] place to sleep or slept in a snf (including now)? No 12/04/2022 Sex and Gender [...] Visit [facility] [address] [facility] [address] [place] [address] Biju Stone MD [address] [place] [address] [place] [address] 09/28/2024 11:20 AM EDT Office Visit [facility] [address] [place] [address] [place] [address] Leni Ruggiero MD [address] [place] [address] [place] [address] 01/07/2025 1:00 PM EDT Office Visit [facility] [address] [place] [phone] Paresh Lagunas, JEWELER APPRENTICE [address] [place], [place] [id number] documented as of this encounter Visit Diagnoses Not on filedocumented in this encounter Additional Health Concerns Assessment Noted Time A fall risk assessment has been complete d for the patient 06/14/2023 10:59 AM EDT documented as of this encounter Care Teams Service Cleaner Relationship Specialty Start Date End Date Biju Stone MD [address] [facility] 110 [place] [address] PCP - General Family Medicine 07/10/22 Biju Stone MD [address] [facility] 110 [place] [address] PCP - ACO Reach 08/02/22 Camryn Foster, EDUARDO [address] [facility] [address] [place] [address] Registered Nurse Family Medicine 04/10/23 documented as of this encounter
--- OUTSIDE RECORDS SUMMARY | 2024-09-15 11:20 | XMS_ITS | Encounter Summary ---
Author Organization [facility] Address [address] [place] [address] Care Team Providers Care Spring Assembler Name Role Phone Biju Stone MD Primary Care Provider [phone] Biju Stone MD Unavailable Camryn Foster RN Unavailable [phone] Encounter Details Date Type Department Care Team (Late st Contact Info) Description 01/01/2023 Abstract [facility] 112 [facility] 110 [place] [address] Biju Stone MD 112 [facility] 110 [place], [place] [address] Social History Tobacco Use Types Packs/Day Years [...] How often do you attend chur or sabianism services? 1 to 4 times per year [...] Recorded Patient Health Questionnaire-2 Score 0 08/02/2022 [facility] of Occupat ional Health - Occupational [...] place to sleep or slept in a long term (including now)? No 12/04/2022 Sex and Gender [...] suspected to have Coronavirus/COVID-19? No / Unsure 01/04/2023 12:35 PM EDT documented as of this encounter Plan of Treatment Upcoming Encounters Date Type Department Care Team (Late st Contact Info) Description 09/15/2024 2:30 PM EDT Office Visit [facility] [address] [facility] [address] [place] [phone] Biju Stone MD [address] [place] [address] [place], [place] [address] 09/28/2024 11:20 AM EDT Office Visit [facility] [address] [facility] [address] [place] [phone] Leni Ruggiero MD [address] [place] [address] [place] [address] 01/07/2025 1:00 PM EDT Office Visit [facility] [address] [place] [phone] Paresh Lagunas, SUPERVISOR IRRIGATION [address] [place], [place] [phone] documented as of this encounter Visit Diagnoses Not on filedocumented in this encounter Care Teams Spring Assembler Relationship Specialty Start Date End Date Biju Stone MD [address] [facility] 110 [place] [address] PCP - General Family Medicine 07/10/22 Biju Stone MD [address] [facility] 110 [place] [address] PCP - ACO Reach 08/02/22 Camryn Foster, EDUARDO [address] [facility] 230 [place] [address] Registered Nurse Family Medicine 04/10/23 documented as of this encounter
--- OUTSIDE RECORDS SUMMARY | 2024-09-15 11:20 | XMS_ITS | Encounter Summary ---
Author Organization [facility] Address [address] [facility] [place] [address] Care Team Providers Care Head Athletic Trainer Name Role Phone Biju Stone MD Primary Care Provider [phone] Biju Stone MD Unavailable Camryn Foster RN Unavailable [phone] Encounter Details Date Type Department Care Team (Late st Contact Info) Description 04/23/2023 Orders Only [facility] [address] [facility] 110 [place] [phone] Viki Norman PA [address] [facility] 110 [place], [place] [address] Thyroid nodule Social History Tobacco Use Types Packs/Day Years [...] How often do you attend chur or pentecostal services? 1 to 4 times per year 12/04/2022 Do you belong to any clubs o r organizations such as faith groups, unions, fraternal or athletic groups, or [...] Recorded Patient Health Questionnaire-2 Score 0 02/04/2023 [facility] [place] of Occupat ional Health - Occupational Stress [...] place to sleep or slept in a jail (including now)? No 12/04/2022 Sex and Gender [...] [facility] [address] [place] [phone] Biju Stone MD [address] [facility] 110 [place] [address] 09/28/2024 11:20 AM EDT Office Visit [facility] [address] [place] [address] [place] [address] Leni Ruggiero MD [address] [facility] [address] [place] [address] 01/07/2025 1:00 PM EDT Office Visit [facility] [address] [place] [address] Paresh Lagunas, CLEANER AND DYER [address] [place], [place] [phone] documented as of this encounter Visit Diagnoses Diagnosis Thyroid nodule Nontoxic uninodular goiter documented in this encounter Care Teams Head Athletic Trainer Relationship Specialty Start Date End Date Biju Stone MD [address] [facility] 110 [place] [address] PCP - General Family Medicine 07/10/22 Biju Stone MD 112 [facility] 110 [place] [address] PCP - ACO Reach 08/02/22 Camryn Foster, RN [address] [facility] 230 [place] [address] Registered Nurse Family Medicine 04/10/23 documented as of this encounter
--- OUTSIDE RECORDS SUMMARY | 2024-09-15 11:20 | XMS_ITS | Encounter Summary ---
Author Organization [facility] Address [address] [place] [address] Care Team Providers Care Technical Professional Name Role Phone Biju Stone MD Primary Care Provider [phone] Biju Stone MD Unavailable Camryn Foster RN Unavailable [phone] Encounter Details Date Type Department Care Team (Late st Contact Info) Description 01/01/2023 Abstract [facility] 112 [facility] 110 [place] [address] Biju Stone MD 112 [facility] 110 [place], [place] [address] Social History Tobacco Use Types Packs/Day Years [...] How often do you attend chur or buddhist services? 1 to 4 times per year 12/04/2022 Do you belong to any clubs o r organizations such as restorationism groups, unions, fraternal or athletic groups, or [...] Recorded Patient Health Questionnaire-2 Score 0 08/02/2022 [facility] of Occupat ional Health - Occupational [...] place to sleep or slept in a half-way (including now)? No 12/04/2022 Sex and Gender [...] Visit [facility] [address] [facility] 110 [place] [phone] Biju Stone MD [address] [facility] [address] [place], [place] [address] 09/28/2024 11:20 AM EDT Office Visit [facility] [address] [facility] [address] [place] [phone] Leni Ruggiero MD [address] [facility] [address] [place] [address] 01/07/2025 1:00 PM EDT Office Visit [facility] [address] [place] [address] Paresh Lagunas, UPHOLSTERER HELPER [address] [place], [place] [phone] documented as of this encounter Visit Diagnoses Not on filedocumented in this encounter Care Teams Technical Professional Relationship Specialty Start Date End Date Biju Stone MD [address] [facility] 110 [place] [address] PCP - General Family Medicine 07/10/22 Biju Stone MD [address] [facility] [address] [place] [address] PCP - ACO Reach 08/02/22 Camryn Foster, EDUARDO [address] [facility] [address] [place] [address] Registered Nurse Family Medicine 04/10/23 documented as of this encounter
--- OUTSIDE RECORDS SUMMARY | 2024-09-15 11:20 | XMS_ITS | Encounter Summary ---
Author Organization [facility] Address [address] [place] [address] Care Team Providers Care Patient Case Coordinator Name Role Phone Biju Stone MD Primary Care Provider [phone] Biju Stone MD Unavailable Carmyn Foster RN Unavailable [phone] Encounter Details Date Type Department Care Team (Late st Contact Info) Description 12/20/2023 Abstract [facility] 112 [facility] 110 [place] [address] Biju Stone MD 112 [facility] 110 [place], [place] [address] Social History Tobacco Use Types Packs/Day Years [...] any clubs o r organizations such as nondenominational groups, unions, fraternal or athletic groups, or [...] Recorded Patient Health Questionnaire-2 Score 0 02/04/2023 [facility] of Occupat ional Health - Occupational Stress [...] Visit [facility] [address] [facility] [address] [place] [address] Biju Stone MD [address] [place] [address] [place] [address] 09/28/2024 11:20 AM EDT Office Visit [facility] [address] [place] [address] [place] [address] Leni Ruggiero MD [address] [place] [address] [place] [address] 01/07/2025 1:00 PM EDT Office Visit [facility] [address] [place] [phone] Paresh Lagunas, AZURE DEVELOPER [address] [place], [place] [address] documented as of this encounter Visit Diagnoses Not on filedocumented in this encounter Additional Health Concerns Assessment Noted Time A fall risk assessment has been complete d for the patient 06/14/2023 10:59 AM EDT documented as of this encounter Care Teams Patient Case Coordinator Relationship Specialty Start Date End Date Biju Stone MD [address] [facility] 110 [place] [address] PCP - General Family Medicine 07/10/22 Biju Stone MD [address] [facility] 110 [place] [address] PCP - ACO Reach 08/02/22 Camryn Foster, EDUARDO [address] [facility] [address] [place] [address] Registered Nurse Family Medicine 04/10/23 documented as of this encounter
--- OUTSIDE RECORDS SUMMARY | 2024-09-15 11:20 | XMS_ITS | Encounter Summary ---
Author Organization [facility] Address [address] [place] [address] Care Team Providers Care Special Education Teachers Name Role Phone Biju Stone MD Primary Care Provider [phone] Biju Stone MD Unavailable Camryn Foster RN Unavailable [phone] Encounter Details Date Type Department Care Team (Late st Contact Info) Description 04/29/2024 Abstract [facility] 112 [facility] 110 [place] [address] Biju Stone MD 112 [facility] 110 [place], [place] [phone] Social History Tobacco Use Types Packs/Day Years [...] How often do you attend chur or yarsanism services? 1 to 4 times per year 12/04/2022 Do you belong to any clubs o r organizations such as episcopal groups, unions, fraternal or athletic groups, or [...] Date Recorded Patient Health Questionnaire-2 Score 0 04/28/2024 [facility] [place] of Occupat ional Health - Occupational Stress [...] place to sleep or slept in a prison (including now)? No 12/04/2022 Sex and Gender [...] [facility] [address] [place] [address] Biju Stone MD [address] [place] [address] 09/28/2024 11:20 AM EDT Office Visit [facility] [address] [place] [address] [place] [address] Leni Ruggiero MD [address] [place] [address] [place] [address] 01/07/2025 1:00 PM EDT Office Visit [facility] [address] [place] [phone] Paresh Lagunas, PAPER GRADER [address] [place], [place] [address] documented as of this encounter Visit Diagnoses Not on filedocumented in this encounter Additional Health Concerns Assessment Noted Time A fall risk assessment has been complete d for the patient 06/14/2023 10:59 AM EDT documented as of this encounter Care Teams Special Education Teachers Relationship Specialty Start Date End Date Biju Stone MD [address] [facility] 110 [place] [address] PCP - General Family Medicine 07/10/22 Biju Stone MD [address] [facility] 110 [place] [address] PCP - ACO Reach 08/02/22 Camryn Foster, EDUARDO [address] [facility] [address] [place] [address] Registered Nurse Family Medicine 04/10/23 documented as of this encounter
--- OUTSIDE RECORDS SUMMARY | 2024-09-15 11:20 | XMS_ITS | Encounter Summary ---
Author Organization [facility] Address [address] [place] [address] Care Team Providers Care Elementary School Tutor Name Role Phone Biju Stone MD Primary Care Provider [phone] Biju Stone MD Unavailable Camryn Foster RN Unavailable [phone] Encounter Details Date Type Department Care Team (Late st Contact Info) Description 07/30/2022 Abstract [facility] 112 [facility] 110 [place] [phone] Biju Stone MD 112 [facility] 110 [place], [place] [address] Social History Tobacco Use Types Packs/Day Years Used Date Smoking Tobacco: Former Cigarettes Q uit: 03/11/1976 Alcohol Use Standard Drinks/Week Comments Yes 1 (1 standard drink = 0.6 oz pur e alcohol) 2-4 times a month Humiliation, Afraid, Rape, and Kick questionnair e Answer Date Recorded Within the last year, have y ou been afraid of your partner or ex-partner? No 08/02/2022 Within the last year, have y ou been humiliated or emotionally abused in other ways by your partner or ex-partner? No Within the last year, have y ou been kicked, hit, slapped, or otherwise physically hurt by your partner or ex-partner? No 08/02/2022 Within the last year, have y ou been raped or forced to have any kind of sexual activity by your partner or ex-partner? No 08/02/2022 AUDIT-C Answer Date Recorded Q1: How often do you have a drink containing alcohol? Never 08/02/2022 Q2: How many drinks containi ng alcohol do you have on a typical day when you are drinking? Patient does not drink Q3: How often do you have si x or more drinks on one occasion? Never 08/02/2022 PHQ-2 Answer Date Recorded Patient Health Questionnaire-2 Score 0 08/02/2022 [facility] of Occupat ional [facility] - Occupational Stress Questionnaire Answer Date Recorded Do you feel stress - tense, restless, nervous, or anxious, or unable to sleep at night because your mind is troubled all the time - these days? Only a little 08/02/2022 PRAPARE - Transportation Answer Date Re corded In the past 12 months, has l ack of transportation kept you from medical appointments or from getting medications? No 07/10 In the past 12 months, has l ack of transportation kept you from meetings, work, or from getting things needed for daily living? No 08/02/2022 Housing Stability Vital Sign Answer Tr e Recorded In the last 12 months, was t here a time when you were not able to pay the mortgage or rent on time? No 08/02/2022 In the last 12 months, how many places have you lived? 1 08/02/2022 In the last 12 months, was t here a time when you did not have a steady place to sleep or slept in a assisted (including now)? No 08/02/2022 Sex and Gender Information Value Date Recorded Sex Assigned at Not on file Legal Sex Male 11:19 PM EDT Gender Identity Male 03/12/2023 10:39 AM EST Sexual Orientation Not on file documented as of this encounter Functional Status * Audit-C Score Answer Date of Assessment Author 0 08/02/2022 2:01 PM MANFREDT Marly Anne LPN * Question Answer Date of Assessment Author Q1: How often do you have a drink containing alcohol? Never 08/02/2022 2:01 PM MANFREDT Marly Anne LPN Q2: How many drinks containing alcohol do you have on a typical day when you are drinking? Patient does not drink 08/02/2022 2:01 PM EDT Marly Anne LPN Q3: How often do you have six or more drinks on one occasion? Never 08/02/2022 2:01 PM EDT Marly Anne LPN * Over the past 2 weeks, how often have you been bothered by any of the following problems? Question Answer Date of Assessment Author Little interest or pleasure in doing things Not at all 08/02/2022 2:01 PM EDT Marly Anne LPN Feeling down, depressed, or hopeless Not at all 08/02/2022 2:01 PM EDT Marly Anne LPN Patient Health Questionnaire-2 Score 0 08/02/2022 2:01 PM EDT Mirella Anne LPN documented as of this encounter Plan of Treatment Upcoming Encounters Date Type Department Care Team (Late st Contact Info) Description 09/15/2024 2:30 PM EDT Office Visit [facility] [address] [place] [address] [place] [address] Biju Stone MD [address] [place] [address] [place] [address] 09/28/2024 11:20 AM EDT Office Visit [facility] [address] [place] [address] Leni Ruggiero MD [address] [place] [address] 01/07/2025 1:00 PM EDT Office Visit [facility] [address] [facility] [place] [phone] Paresh Lagunas NP [address] [place], [place] [address] documented as of this encounter Visit Diagnoses Not on filedocumented in this encounter Care Teams Elementary School Tutor Relationship Specialty Start Date End Date Biju Stone MD [address] [place] [address] [place] [address] PCP - General Family Medicine 07/10/22 Biju Stone MD 112 [facility] 110 [place] [address] PCP - ACO Reach 08/02/22 Camryn Foster, RN [address] [facility] 230 [place] [address] Registered Nurse Family Medicine 04/10/23 documented as of this encounter
--- OUTSIDE RECORDS SUMMARY | 2024-09-15 11:20 | XMS_ITS | Encounter Summary ---
Author Organization [facility] Address [address] [place] [address] Care Team Providers Care Market Researcher Name Role Phone Biju Stone MD Primary Care Provider [phone] Biju Stone MD Unavailable Camryn Foster RN Unavailable [phone] Encounter Details Date Type Department Care Team (Late st Contact Info) Description 05/20/2023 Abstract [facility] 112 [facility] 110 [place] [address] Biju Stone MD 112 [facility] 110 [place], [place] [address] Social History Tobacco Use Types Packs/Day Years [...] How often do you attend chur or buddhism services? 1 to 4 times per year [...] Recorded Patient Health Questionnaire-2 Score 0 02/04/2023 [facility] [place] of Occupat ional Health - Occupational Stress [...] place to sleep or slept in a detention (including now)? No 12/04/2022 Sex and Gender [...] Visit [facility] [address] [facility] [address] [place] [address] Biju Stone MD [address] [place] [address] 09/28/2024 11:20 AM EDT Office Visit [facility] [address] [place] [address] Leni Ruggiero MD [address] [place] [address] 01/07/2025 1:00 PM EDT Office Visit [facility] [address] [place] [address] Paresh Lagunas, DIVISION OPERATIONS SPECIALIST [address] [place] [address] documented as of this encounter Visit Diagnoses Not on filedocumented in this encounter Care Teams Market Researcher Relationship Specialty Start Date End Date Biju Stone MD [address] [facility] 110 [place] [address] PCP - General Family Medicine 07/10/22 Biju Stone MD [address] [facility] 110 [place] [address] PCP - ACO Reach 08/02/22 Camryn Foster, RN [address] [facility] 230 [place] [address] Registered Nurse Family Medicine 04/10/23 documented as of this encounter
--- OUTSIDE RECORDS SUMMARY | 2024-09-15 11:20 | XMS_ITS | Encounter Summary ---
Author Organization [facility] Address [address] [place] [address] Care Team Providers Care Dermatology Physician Name Role Phone Biju Cruz MD Primary Care Provider [phone] Biju Cruz MD Unavailable Camryn Foster RN Unavailable [phone] Encounter Details Date Type Department Care Team (Late st Contact Info) Description 05/28/2023 Clinisync Result Encounter [facility] External Department Unsolicited Provider, Generic External Data Social History Tobacco Use Types Packs/Day Years [...] 12/04/2022 How often do you attend chur ch or hindu services? 1 to 4 times per year 12/04/2022 Do you belong to any clubs o r organizations such as restoration groups, unions, fraternal or athletic groups, or [...] Recorded Patient Health Questionnaire-2 Score 0 02/04/2023 [facility] of Occupat ional Health - Occupational [...] place to sleep or slept in a [facility]p (including now)? No 12/04/2022 Sex and Gender [...] Visit [facility] [address] [facility] 110 [place] [address] Biju Cruz MD [address] [facility] 110 [place] [address] 09/28/2024 11:20 AM EDT Office Visit [facility] [address] [facility] [address] [place] [address] Leni Ruggiero MD [address] [facility] [address] [place] [address] 01/07/2025 1:00 PM EDT Office Visit [facility] [address] [place] [address] Paresh Lagunas, BUTTON AND BUCKLE MAKER [address] [place], [place] [address] documented as of this encounter Procedures Procedure Name Priority Date/Time Associated Diagnosis Comments US BIOPSY THYROID 05/28/2023 12: 10 PM EDT documented in this encounter Results * US BIOPSY THYROID (05/28/2023 12:10 PM EDT) Anatomical Region Laterality Modality Other 05/28/2023 12:1 0 PM EDT Narrative 05/28/2023 12:13 [place] [address] Ultrasound Report Signed Patient: ASIA KING MR#: [id number] : 1940 Acct:[id number] Age/Sex: 83 / M ADM Date: 05/28/23 Loc: US Attending Dr: Leni Ruggiero M.D. Ordering Physician: Leni Ruggiero M.D. Date of Service: 05/28/23 Procedure(s): US biopsy thyroid Accession Number(s): [id number] cc: BIJU CRUZ ; Leni Ruggiero M.D. [address] [address] Patient Name: ASIA KING MRN: [id number] date: 1940 Sex: M Assigned Patient Location: US Current Patient Location: US Accession/Order Number: [id number] Exam Date: 05/28/2023 11:10 Report Date: 05/28/2023 12:10 At the request of: LENI RUGGIERO Procedure: US biopsy thyroid EXAMINATION: US biopsy thyroid HISTORY: Thyroid Nodule COMPARISON: No relevant comparison available. TECHNIQUE: After obtaining informed consent, an ultrasound-guided biopsy was performed in the usual sterile manner. FINDINGS: IMAGING: Ultrasound BIOPSY NEEDLE: 25-gauge 2 inch SPECIMEN TYPE, #, LOCATION: 4 fine-needle aspirates. Left thyroid 2.5 cm nodule MEDICATION: 2 cc 1% buffered lidocaine COMPLICATIONS: None. LABORATORY: Pathology and molecular studies OTHER: Negative. US/US biopsy thyroid IMPRESSION: Uneventful ultrasound guided biopsy. The patient was instructed to obtain follow up care and biopsy results from the referring physician. Electronically authenticated by: JAVON WILSON Date: 05/28/2023 12:10 Dictated By: Javon Wilson M.D. Signed By: 05/28/23 1213 DD/ 1210 TD/TT: Compensation Adjuster: Procedure Note Radiology, Radiologist, MD - 05/28/2023 [place] [address] Ultrasound Report Signed Patient: ASIA KING EMR#: [id number] : 1940cct:[id number] Age/Sex: 83 / MADM Date: 05/28/23 Loc: US Attending Dr: Leni Ruggiero M.D. Ordering Physician: Leni Ruggiero M.D. Date of Service: 05/28/23 Procedure(s): US biopsy thyroid Accession Number(s): [id number] cc: BIJU CRUZ ; Leni Ruggiero M.D. [address] [place] [address] Patient Name: ASIA KING MRN: [id number] date: 1940 Sex: M Assigned Patient Location: US Current Patient Location: US Accession/Order Number: [id number] Exam Date: 05/28/2023 11:10 Report Date: 05/28/2023 12:10 At the request of: LENI RUGGIERO Procedure: US biopsy thyroid EXAMINATION: US biopsy thyroid HISTORY: Thyroid Nodule COMPARISON: No relevant comparison available. TECHNIQUE: After obtaining informed consent, an ultrasound-guided biopsywas performed in the usual sterile manner. FINDINGS: IMAGING: Ultrasound BIOPSY NEEDLE: 25-gauge 2 inch SPECIMEN TYPE, #, LOCATION: 4 fine-needle aspirates. Left thyroid 2.5 cm nodule MEDICATION: 2 cc 1% buffered lidocaine COMPLICATIONS: None. LABORATORY: Pathology and molecular studies OTHER: Negative. US/US biopsy thyroid IMPRESSION: Uneventful ultrasound guided biopsy. The patient was instructed to obtain follow up care and biopsy results from the referring physician. Electronically authenticated by: JAVON WILSON Date: 05/28/2023 12:10 Dictated By: Javon Wilson M.D. Signed By:05/28/23 1213 DD/ 1210 TD/TT: Compensation Adjuster: us Generic External Data Provider [facility] Final Result documented in this encounter Visit Diagnoses Not on filedocumented in this encounter Care Teams Dermatology Physician Relationship Specialty Start Date End Date Biju Cruz MD [address] [facility] 110 [place] [address] PCP - General Family Medicine 07/10/22 Biju Cruz MD [address] [facility] 110 [place] [address] PCP - ACO Reach 08/02/22 Camryn Foster, RN [address] [facility] [address] [place] [address] Registered Nurse Family Medicine 04/10/23 documented as of this encounter
--- OUTSIDE RECORDS SUMMARY | 2024-09-15 11:20 | XMS_ITS | Encounter Summary ---
Author Organization [facility] Address [address] [place] [address] Care Team Providers Care Steelscope Operator Name Role Phone Biju Stone MD Primary Care Provider Biju Stone MD Unavailable Camryn Foster RN Unavailable [phone] Encounter Details Date Type Department Care Team (Late st Contact Info) Description 12/25/2022 Abstract [facility] 112 [facility] 110 [place] [address] Biju Stone MD 112 [facility] 110 [place], [place] [address] Social History Tobacco Use Types Packs/Day Years [...] How often do you attend chur or scientology services? 1 to 4 times per year 12/04/2022 Do you belong to any clubs o r organizations such as islam groups, unions, fraternal or athletic groups, or [...] Recorded Patient Health Questionnaire-2 Score 0 08/02/2022 [facility] of Occupat ional Health - Occupational Stress [...] Visit [facility] [address] [facility] [address] [place] [address] Biju Stone MD [address] [facility] [address] [place], [place] [address] 09/28/2024 11:20 AM EDT Office Visit [facility] [address] [facility] [address] [place] [address] Leni Ruggiero MD [address] [facility] [address] [place] [address] 01/07/2025 1:00 PM EDT Office Visit [facility] [address] [place] [address] Paresh Lagunas, VP PUBLIC RELATIONS [address] [place], [place] [address] documented as of this encounter Visit Diagnoses Not on filedocumented in this encounter Care Teams Steelscope Operator Relationship Specialty Start Date End Date Biju Stone MD [address] [facility] [address] [place] [address] PCP - General Family Medicine 07/10/22 Biju Stone MD [address] [facility] [address] [place] [address] PCP - ACO Reach 08/02/22 Camryn Foster, EDUARDO [address] [facility] [address] [place] [address] Registered Nurse Family Medicine 04/10/23 documented as of this encounter
--- OUTSIDE RECORDS SUMMARY | 2024-09-15 11:20 | XMS_ITS | Encounter Summary ---
Author Organization [facility] Address [address] [facility] [place] [address] Care Team Providers Care Bean Viner Name Role Phone Biju Stone MD Primary Care Provider [phone] Biju Stone MD Unavailable Camryn Foster RN Unavailable [phone] Encounter Details Date Type Department Care Team (Late st Contact Info) Description 11/05/2022 Abstract [facility] [address] [place] [address] Paresh Lagunas, QUALITY CLOTH TESTER [address] [place] [address] Social History Tobacco Use Types Packs/Day Years [...] Recorded Patient Health Questionnaire-2 Score 0 08/02/2022 [facility] of Occupat ional Health - Occupational [...] slept in a intermediate (including now)? No 08/02/2022 Sex and Gender [...] suspected to have Coronavirus/COVID-19? No / Unsure 11/04/2022 9:43 AM EDT documented as of this encounter Plan of Treatment Upcoming Encounters Date Type Department Care Team (Late st Contact Info) Description 09/15/2024 2:30 PM EDT Office Visit [facility] [address] [facility] [address] [place] [address] Biju Stone MD [address] [facility] [address] [place] [address] 09/28/2024 11:20 AM EDT Office Visit [facility] [address] [facility] [address] [place] [address] Leni Ruggiero MD [address] [facility] [address] [place] [address] 01/07/2025 1:00 PM EDT Office Visit [facility] [address] [place] [address] Paresh Lagunas, QUALITY CLOTH TESTER [address] [place] [address] documented as of this encounter Visit Diagnoses Not on filedocumented in this encounter Care Teams Bean Viner Relationship Specialty Start Date End Date Biju Stone MD [address] [facility] [address] [place] [address] PCP - General Family Medicine 07/10/22 Biju Stone MD [address] [facility] [address] [place] [address] PCP - ACO Reach 08/02/22 Camryn Foster, EDUARDO [address] [facility] [address] [place] [address] Registered Nurse Family Medicine 04/10/23 documented as of this encounter
--- OUTSIDE RECORDS SUMMARY | 2024-09-15 11:20 | XMS_ITS | Encounter Summary ---
Author Organization [facility] Address [address] [place] [address] Care Team Providers Care Air Brake Adjuster Name Role Phone Biju Stone MD Primary Care Provider [phone] Biju Stone MD Unavailable Camryn Foster RN Unavailable [phone] Encounter Details Date Type Department Care Team (Late st Contact Info) Description 09/07/2024 Orders Only [facility] [address] [facility] [address] [place] [address] Aleta De Los Santos MA Multiple thyroid nodules (Primary Dx) Social History Tobacco Use Types Packs/Day Years Used Date Smoking Tobacco: Former Cigarettes 2 16.4 0 10/10/1959 - 03/11/1976 Smokeless Tobacco: Never Comments:Loved it Alcohol Use Standard Drinks/Week Comments Not Currently 1 (1 standard drink = 0.6 oz pur e alcohol) B1300 Health Literacy Answer Date Recor ded How often do you need to hav e someone help you when you read instructions, pamphlets, or other written material from your doctor or pharmacy? Never 05/08/2024 Humiliation, Afraid, Rape, and Kick questionnair e [...] family, friends, or neighbors? Twice a week 05/08/19 How often do you get togethe r with friends or relatives? Three times a week 05/08/2024 How often do you attend chur or mormon services? 1 to 4 times per year 05/08/2024 Do you belong to any clubs o r organizations such as muslim groups, unions, fraAngie's List or athletic groups, or school groups? No 05/08/2024 Attends Club or Organization Meetings Not on cruz e 05/08/2024 Are you , , di vorced, , never , or living with a partner? 05/08/2024 AUDIT-C Answer Date Recorded Q1: How often do you have a drink containing alc ohol? 2-4 times a month 05/08/2024 Q2: How many drinks containi ng alcohol do you have on a typical day when you are drinking? 1 or 2 05/08/2024 Q3: How often do you have si x or more drinks on one occasion? Never 05/08/2024 Overall Financial Resource Strain (CARDIA) Answe r Date Recorded How hard is it for you to pa y for the very basics like food, housing, medical care, and heating? Not hard at all 05/08/2024 PHQ-2 Answer Date Recorded Patient Health Questionnaire-2 Score 0 08/13/2024 [facility] - Occupational Stress Questionnaire Answer Date Recorded Do you feel stress - tense, restless, nervous, or anxious, or unable to sleep at night because your mind is troubled all the time - these days? Only a little 05/08/2024 Exercise Vital Sign Answer Date Recorde d On average, how many days pe r week do you engage in moderate to strenuous exercise (like a brisk walk)? 3 days 05/08/2024 On average, how many minutes do you engage in exercise at this level? 10 min 05/08/2024 Hunger Vital Sign Answer Date Recorded Within the past 12 months, y ou worried that your food would run out before you got the money to buy more. Never true 05/08/19 25 Within the past 12 months, t he food you bought just didn't last and you didn't have money to get more. Never true 05/08/2024 PRAPARE - Transportation Answer Date Re corded In the past 12 months, has l ack of transportation kept you from medical appointments or from getting medications? No 04/12 In the past 12 months, has l ack of transportation kept you from meetings, work, or from getting things needed for daily living? No 05/08/2024 Housing Stability Vital Sign Answer Tr e [...] place to sleep or slept in a [place] (including now)? No 12/04/2022 Housing Stability Vital Sign Answer Tr e Recorded In the last 12 months, was t here a time when you were not able to pay the mortgage or rent on time? No 05/08/2024 In the past 12 months, how m any times have you moved where you were living? 0 05/08/2024 At any time in the past 12 m [facility], were you homeless or living in a [place] health [place] facility (including now)? No 05/08/2024 Sex and Gender Information Value Date Recorded Sex Assigned at Not on file Legal Sex Male 11:19 PM EDT Gender Identity Male 03/12/2023 10:39 AM EST Sexual Orientation Not on file documented as of this encounter Plan of Treatment Upcoming Encounters Date Type Department Care Team (Late st Contact Info) Description 09/15/2024 2:30 PM EDT Office Visit [facility] [address] [facility] 110 [place] [address] Biju Stone MD [address] [facility] 110 [place] [address] 09/28/2024 11:20 AM EDT Office Visit [facility] [address] [facility] [address] [place] [address] Leni Ruggiero MD [address] [facility] [address] [place] [address] 01/07/2025 1:00 PM EDT Office Visit [facility] [address] [place] [address] Paresh Lagunas, DOMESTIC MAID [address] [facility], [place] [address] Scheduled Orders Name Type Priority Associated Diagnoses Orde r Schedule US thyroid Imaging Routine Multiple thyroid nodules Expected: 09/07/2024, Expires: 09/07/2025 documented as of this encounter Visit Diagnoses Diagnosis Multiple thyroid nodules- Primary Nontoxic multinodular goiter documented in this encounter Additional Health Concerns Assessment Noted Time A fall risk assessment has been complete d for the patient 06/14/2023 10:59 AM EDT documented as of this encounter Care Teams Air Brake Adjuster Relationship Specialty Start Date End Date Biju Stone MD [address] [facility] 110 [place] [address] PCP - General Family Medicine 07/10/22 Biju Stone MD [address] [facility] 110 [place] [address] PCP - ACO Reach 08/02/22 Camryn Foster, EDUARDO [address] [facility] [address] [place] [address] Registered Nurse Family Medicine 04/10/23 documented as of this encounter
--- OUTSIDE RECORDS SUMMARY | 2024-09-15 11:20 | XMS_ITS | Encounter Summary ---
Author Organization [facility] Address [address] [place] [address] Care Team Providers Care Director Of Market Intelligence Name Role Phone Biju Stone MD Primary Care Provider [phone] Biju Stone MD Unavailable Camryn Foster RN Unavailable [phone] Encounter Details Date Type Department Care Team (Late st Contact Info) Description 05/16/2023 Abstract [facility] 112 [facility] 110 [place] [address] Biju Stone MD 112 [facility] 110 [place], [place] [address] Social History Tobacco Use Types Packs/Day Years [...] How often do you attend chur or christianity services? 1 to 4 times per year [...] Recorded Patient Health Questionnaire-2 Score 0 02/04/2023 [facility] [place] [place] of Occupat ional Health - Occupational Stress [...] place to sleep or slept in a retirement (including now)? No 12/04/2022 Sex and Gender [...] Visit [facility] [address] [facility] [address] [place] [address] Biju Stone MD [address] [facility] [address] [place] [address] 09/28/2024 11:20 AM EDT Office Visit [facility] [address] [facility] [address] [place] [address] Leni Ruggiero MD [address] [facility] [address] [place] [address] 01/07/2025 1:00 PM EDT Office Visit [facility] [address] [facility] [address] Paresh Lagunas, SPINNING MACHINE TENDER [address] [place] [address] documented as of this encounter Visit Diagnoses Not on filedocumented in this encounter Care Teams Director Of Market Intelligence Relationship Specialty Start Date End Date Biju Stone MD [address] [facility] 110 [place] [address] PCP - General Family Medicine 07/10/22 Biju Stone MD [address] [facility] 110 [place] [address] PCP - ACO Reach 08/02/22 Camryn Foster, RN [address] [facility] 230 [place] [address] Registered Nurse Family Medicine 04/10/23 documented as of this encounter
--- OUTSIDE RECORDS SUMMARY | 2024-09-15 11:20 | XMS_ITS | Encounter Summary ---
Author Organization [facility] Address [address] [place] [address] Care Team Providers Care Stores Clerk Name Role Phone Biju Stone MD Primary Care Provider [phone] Biju Stone MD Unavailable Camryn Foster RN Unavailable [phone] Encounter Details Date Type Department Care Team (Late st Contact Info) Description 12/11/2022 Orders Only [facility] [address] [facility] [address] [place] [address] A, Unknown Practice [address] [place] [address] Social History Tobacco Use Types [...] week 12/04/2022 How often do you attend [facility] or gnosticism services? 1 to 4 times per year 12/04/2022 Do you belong to any clubs o r organizations such as protestant groups, unions, fraternal or athletic groups, or [...] Recorded Patient Health Questionnaire-2 Score 0 08/02/2022 [facility] of Occupat ional Health - Occupational Stress [...] place to sleep or slept in a residential (including now)? No 12/04/2022 Sex and Gender [...] Visit [facility] [address] [facility] [address] [place] [address] Biju Stone MD [address] [facility] [address] [place] [address] 09/28/2024 11:20 AM EDT Office Visit [facility] [address] [facility] [address] [place] [address] Leni Ruggiero MD [address] [facility] [address] [place] [address] 01/07/2025 1:00 PM EDT Office Visit [facility] [address] [place] [facility] [place] [address] Paresh Lagunas, MICHELE [address] [place], [place] [address] documented as of this encounter Procedures Procedure Name Priority Date/Time Associated Diagnosis Comments ELECTROCARDIOGRAM REPORT Routine 023 9:10 AM EDT documented in this encounter Results * Electrocardiogram Report (12/07/2022 9:10 AM EDT) us Unknown Practice A IN CLINIC/BEDSIDE ORDERABLES Final Result documented in this encounter Visit Diagnoses Not on filedocumented in this encounter Care Teams Stores Clerk Relationship Specialty Start Date End Date Biju Stone MD [address] [facility] 110 [place] [address] PCP - General Family Medicine 07/10/22 Biju Stone MD [address] [facility] 110 [place] [address] PCP - ACO Reach 08/02/22 Camryn Foster, RN [address] [facility] 230 [place] [address] Registered Nurse Family Medicine 04/10/23 documented as of this encounter
--- OUTSIDE RECORDS SUMMARY | 2024-09-15 11:20 | XMS_ITS | Encounter Summary ---
Author Organization [facility] Address [address] [facility] [place] [address] Care Team Providers Care Metal Or Wood Blocker Name Role Phone Biju Stone MD Primary Care Provider [phone] Biju Stone MD Unavailable Camryn Foster RN Unavailable [phone] Encounter Details Date Type Department Care Team (Late st Contact Info) Description 06/11/2023 Orders Only [facility] 112 [facility] 130 [place] [address] Leni Ruggiero MD 112 [facility] 130 [place], [place] [address] Social History Tobacco Use Types Packs/Day Years [...] How often do you attend chur or church services? 1 to 4 times per year 12/04/2022 Do you belong to any clubs o r organizations such as buddhist groups, unions, fraternal or athletic groups, or [...] Recorded Patient Health Questionnaire-2 Score 0 02/04/2023 [facility] of Occupat ional Health - Occupational [...] Visit [facility] [address] [facility] [address] [place] [address] Biju Stone MD [address] [facility] [address] [place] [address] 09/28/2024 11:20 AM EDT Office Visit [facility] [address] [facility] [address] [place] [address] Leni Ruggiero MD [address] [facility] [address] [place] [address] 01/07/2025 1:00 PM EDT Office Visit [facility] [address] [place] [address] Paresh Lagunas, FIELD TECHNICAL ASSISTANT [address] [place] [address] documented as of this encounter Procedures Procedure Name Priority Date/Time Associated Diagnosis Comments GENERAL PATHOLOGY Routine 05/30/2023 10:05 AM EDT documented in this encounter Results * (ABNORMAL) GENERAL PATHOLOGY (05/30/2023 10:05 AM EDT) us Leni Ruggiero MD [facility] Final Result documented in this encounter Visit Diagnoses Not on filedocumented in this encounter Care Teams Metal Or Wood Blocker Relationship Specialty Start Date End Date Biju Stone MD [address] [facility] 110 [place] [address] PCP - General Family Medicine 07/10/22 Biju Stone MD [address] [facility] 110 [place] [address] PCP - ACO Reach 08/02/22 Camryn Foster, EDUARDO [address] [facility] 230 [place] [address] Registered Nurse Family Medicine 04/10/23 documented as of this encounter
--- OUTSIDE RECORDS SUMMARY | 2024-09-15 11:20 | XMS_ITS | Encounter Summary ---
Author Organization [facility] Address [address] [place] [address] Care Team Providers Care Geothermal Operations Engineer Name Role Phone Biju Stone MD Primary Care Provider [phone] Biju Stone MD Unavailable Camryn Foster RN Unavailable [phone] Reason for Visit * Reason Comments Med Change Request Encounter Details Date Type Department Care Team (Late st Contact Info) Description 09/04/2024 Refill [facility] 112 [facility] 110 [place] [phone] Biju Stone MD 112 [facility] 110 [place], [place] [id number] Primary hypertension Social History Tobacco Use Types Packs/Day Years [...] How often do you attend chur or holiness services? 1 to 4 times per year 05/08/2024 Do you belong to any clubs o r organizations such as mormonism groups, unions, fraternal or athletic groups, or school groups? No [...] Recorded Patient Health Questionnaire-2 Score 0 08/13/2024 [facility] [place] of Occupat ional Health - Occupational Stress [...] in a detention (including now)? No 12/04/2022 Housing Stability Vital Sign Answer Tr e Recorded In the last 12 months, was t here a time when you were not able to pay the mortgage or rent on time? No 05/08/2024 In the past 12 months, how m any times have you moved where you were living? 0 05/08/2024 At any time in the past 12 m [facility], were you homeless or living in a detention (including now)? No 05/08/2024 Sex and Gender Information Value Date Recorded Sex Assigned at Not on file Legal Sex Male 11:19 PM EDT Gender Identity Male 03/12/2023 10:39 AM EST Sexual Orientation Not on file documented as of this encounter Miscellaneous Notes * Telephone Encounter - EDELMIRA Kerns - 09/05/2024 8:55 AM EDT Clonidine sent. documented in this encounter Plan of Treatment Upcoming Encounters Date Type Department Care Team (Late st Contact Info) Description 09/15/2024 2:30 PM EDT Office Visit [facility] [address] [facility] [address] [place] [address] Biju Stone MD [address] [facility] [address] [place] [address] 09/28/2024 11:20 AM EDT Office Visit [facility] [address] [facility] [address] [place] [address] Leni Ruggiero MD [address] [facility] [address] [place] [address] 01/07/2025 1:00 PM EDT Office Visit [facility] [address] [place] [phone] Paresh Lagunas, MICHELE [address] [place] [address] documented as of this encounter Visit Diagnoses Diagnosis Primary hypertension Unspecified essential hypertension documented in this encounter Additional Health Concerns Assessment Noted Time A fall risk assessment has been complete d for the patient 06/14/2023 10:59 AM EDT documented as of this encounter Care Teams Geothermal Operations Engineer Relationship Specialty Start Date End Date Biju Stone MD [address] [facility] [address] [place] [address] PCP - General Family Medicine 07/10/22 Biju Stone MD [address] [facility] [address] [place] [address] PCP - ACO Reach 08/02/22 Camryn Foster, RN [address] [facility] [address] [place] [address] Registered Nurse Family Medicine 04/10/23 documented as of this encounter
--- OUTSIDE RECORDS SUMMARY | 2024-09-15 11:20 | XMS_ITS | Clinical Summary ---
Author Organization [facility] Address [address] [place] [address] Care Team Providers Care Clinic Office Manager Name Role Phone Biju Stone MD Primary Care Provider [phone] Biju Stone MD Unavailable Camryn Foster RN Unavailable [phone] Allergies Active Allergy Reactions Criticality Noted Date Comments Penicillin G Rash Low 07/10/2022 Medications Ascorbic Acid (Vitamin C) 500 MG capsule as directed Orally Active zinc gluconate 50 MG tablet Take 50 mg by mouth in the morning. Active cholecalciferol (Vitamin D-3) 50 MCG (1999) capsule Take 2,000 Units by mouth in the morning. Active ferrous sulfate 325 (65 Fe) MG EC tablet Take 325 mg by mouth in the morning. Take with meals. Do not crush, chew, or split.. Active furosemide (Lasix) 20 MG tabletIndication s:Pitting edema TAKE 1 TABLET (20 MG) BY MOUTH EVERY DAY NEEDED FOR EDEMA 100 tablet 3 11/22/19 24 Active atorvastatin (Lipitor) 20 MG tabletIndication s:Primary hypertension TAKE 1 TABLET BY MOUTH EVERY DAY 100 tablet 3 03/09/20 24 Active carvedilol (Coreg) 25 MG tabletIndication s:Primary hypertension TAKE 1 TABLET (25 MG) BY MOUTH IN THE MORNING AND 1 TABLET (25 MG) IN THE EVENING. TAKE WITH MEALS. 200 tablet 3 04/16/19 25 026 Active potassium chloride ER (Micro-K) 10 MEQ ER capsuleIndicatio ns:Secondary hypertension,Hyp okalemia Take 1 capsule (10 mEq) by mouth every other day 04/28/19 25 Active cloNIDine (Catapres) 0.1 MG tabletIndication s:Primary hypertension Take 1 tablet (0.1 mg) by mouth at bedtime 90 tablet 3 09/06/19 25 Active cloNIDine (Catapres) 0.1 MG tabletIndication s:Primary hypertension Take 1 tablet (0.1 mg) by mouth at bedtime 30 tablet 08/14/19 25 025 Discontinued Active Problems Problem Noted Date Diagnosed Date H/O hyperkalemia 09/10/2023 Hyperparathyroidism 09/10/2023 Localized edema 09/10/2023 Multiple thyroid nodules 05/14/2023 Thyroid nodule 04/30/2023 Assessment & Plan (09/24/2023 11:57 AM EDT): Make appointment ENT Assessment & Plan (04/30/2023 1:39 PM EST): Follow-up Dr. Ruggiero Biceps tendinitis of right upper extremity 04/30 Assessment & Plan (04/30/2023 1:35 PM EST): Stretching exercises Medicare annual wellness visit, subsequent 03/19 Assessment & Plan (04/28/2024 1:50 PM EST): Colonoscopy every 10 years or Cologuard every 3 years ages 50-75 Flu Vaccine yearly Pneumovax and Prevnar Mammo yearly for women and PSA yearly for men Labs/Screening yearly to rule out Diabetes, Chronic Kidney disease and liver disease Hepatitis Screen forat risk populations Shingles vaccine after 65 if indicated Tetanus Vaccine every 10 years Lipids yearly under the age of 75 If Smoking history: one time CT scan of chest and Ultrasound of Aorta to screen for Anuerysm Assessment & Plan (03/19/2023 11:15 AM EST): Colonoscopy every 10 years or Cologuard every 3 years ages 50-75 Flu Vaccine yearly Pneumovax and Prevnar Mammo yearly for women and PSA yearly for men Labs/Screening yearly to rule out Diabetes, Chronic Kidney disease and liver disease Hepatitis Screen forat risk populations Shingles vaccine after 65 if indicated Tetanus Vaccine every 10 years Lipids yearly under the age of 75 If Smoking history: one time CT scan of chest and Ultrasound of Aorta to screen for Anuerysm Reactive depression 03/19/2023 Assessment & Plan (03/19/2023 11:26 AM EST): Consider Antidepressant Left knee pain 01/28/2023 H/O total knee replacement, left 01/28/2023 Status post total right knee replacement 023 Osteoarthritis of knee 07/10/2022 Assessment & Plan (12/11/2022 2:40 PM EDT): Cleared for Surgery of LEFT knee Artificial knee joint present 07/10/2022 Hypertension 07/10/2022 Assessment & Plan (08/13/2024 1:18 PM EDT): Our specific goals, for your hypertension, is to keep your blood pressure less than 140/90, and the importance of weight control. We made recommendations on how to control your blood pressure, and minimize your risk of these copmplications. We also discussed your current barriers to a healthy living and importance of healthy diet and exercise. Prior to your visit today we have reviewed your chart and formed a plan to assist with providing you the best possible care. We reviewed the possible complications of hypertension including, stroke, heart failure and kidney impairment. In addition, we discussed your medications, the importance of taking them as prescribed. DASH diet handouts Assessment & Plan (04/28/2024 1:49 PM EST): Our specific goals, for your hypertension, is to keep your blood pressure less than 140/90, and the importance of weight control. We made recommendations on how to control your blood pressure, and minimize your risk of these copmplications. We also discussed your current barriers to a healthy living and importance of healthy diet and exercise. Prior to your visit today we have reviewed your chart and formed a plan to assist with providing you the best possible care. We reviewed the possible complications of hypertension including, stroke, heart failure and kidney impairment. In addition, we discussed your medications, the importance of taking them as prescribed. DASH diet handouts Assessment & Plan (12/24/2023 2:14 PM EDT): Our specific goals, for your hypertension, is to keep your blood pressure less than 140/90, and the importance of weight control. We made recommendations on how to control your blood pressure, and minimize your risk of these copmplications. We also discussed your current barriers to a healthy living and importance of healthy diet and exercise. Prior to your visit today we have reviewed your chart and formed a plan to assist with providing you the best possible care. We reviewed the possible complications of hypertension including, stroke, heart failure and kidney impairment. In addition, we discussed your medications, the importance of taking them as prescribed. [employer] handouts Assessment & Plan (09/24/2023 11:49 AM EDT): Our specific goals, for your hypertension, is to keep your blood pressure less than 140/90, and the importance of weight control. We made recommendations on how to control your blood pressure, and minimize your risk of these copmplications. We also discussed your current barriers to a healthy living and importance of healthy diet and exercise. Prior to your visit today we have reviewed your chart and formed a plan to assist with providing you the best possible care. We reviewed the possible complications of hypertension including, stroke, heart failure and kidney impairment. In addition, we discussed your medications, the importance of taking them as prescribed. [employer] handouts Assessment & Plan (09/10/2023 1:19 PM EDT): Our specific goals, for your hypertension, is to keep your blood pressure less than 140/90, and the importance of weight control. We made recommendations on how to control your blood pressure, and minimize your risk of these copmplications. We also discussed your current barriers to a healthy living and importance of healthy diet and exercise. Prior to your visit today we have reviewed your chart and formed a plan to assist with providing you the best possible care. We reviewed the possible complications of hypertension including, stroke, heart failure and kidney impairment. In addition, we discussed your medications, the importance of taking them as prescribed. [employer] handouts Assessment & Plan (06/11/2023 1:09 PM EDT): Our specific goals, for your hypertension, is to keep your blood pressure less than 140/90, and the importance of weight control. We made recommendations on how to control your blood pressure, and minimize your risk of these copmplications. We also discussed your current barriers to a healthy living and importance of healthy diet and exercise. Prior to your visit today we have reviewed your chart and formed a plan to assist with providing you the best possible care. We reviewed the possible complications of hypertension including, stroke, heart failure and kidney impairment. In addition, we discussed your medications, the importance of taking them as prescribed. [employer] handouts Assessment & Plan (04/30/2023 1:33 PM EST): Our specific goals, for your hypertension, is to keep your blood pressure less than 140/90, and the importance of weight control. We made recommendations on how to control your blood pressure, and minimize your risk of these copmplications. We also discussed your current barriers to a healthy living and importance of healthy diet and exercise. Prior to your visit today we have reviewed your chart and formed a plan to assist with providing you the best possible care. We reviewed the possible complications of hypertension including, stroke, heart failure and kidney impairment. In addition, we discussed your medications, the importance of taking them as prescribed. [employer] handouts Assessment & Plan (10/30/2022 2:55 PM EDT): Our specific goals, for your hypertension, is to keep your blood pressure less than 140/90, and the importance of weight control. We made recommendations on how to control your blood pressure, and minimize your risk of these copmplications. We also discussed your current barriers to a healthy living and importance of healthy diet and exercise. Prior to your visit today we have reviewed your chart and formed a plan to assist with providing you the best possible care. We reviewed the possible complications of hypertension including, stroke, heart failure and kidney impairment. In addition, we discussed your medications, the importance of taking them as prescribed. 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 Increase fluids. Assessment & Plan (09/24/2023 11:53 AM EDT): Sees Kidney Specialist and stable Assessment & Plan (03/19/2023 11:15 AM EST): Our specific goals, for your hypertension, is to keep your blood pressure less than 140/90, and the importance of weight control. We made recommendations on how to control your blood pressure, and minimize your risk of these copmplications. We also discussed your current barriers to a healthy living and importance of healthy diet and exercise. Prior to your visit today we have reviewed your chart and formed a plan to assist with providing you the best possible care. We reviewed the possible complications of hypertension including, stroke, heart failure and kidney impairment. In addition, we discussed your medications, the importance of taking them as prescribed. DASH diet handouts Stage 4 chronic kidney disease 07/10/2022 Assessment & Plan (04/28/2024 1:49 PM EST): F/up with kidney specialist Assessment & Plan (12/24/2023 2:17 PM EDT): Patient is to follow up with Nephrology Assessment & Plan (06/11/2023 1:13 PM EDT): This is a chronic medical condition that is stable since last assessment. No changes in treatment are suggested at this time. Continue Current meds. Last lab showed GFR 33 Assessment & Plan (04/30/2023 1:33 PM EST): F/U kidney specialist Avoid NSIADs Assessment & Plan (10/30/2022 2:55 PM EDT): F/U with Kidney specialist Resolved Problems Problem Noted Date Diagnosed Date Resolved Date Preop examination 12/11/2022 04/16/2023 Assessment & Plan (12/11/2022 2:39 PM EDT): Hold aspirin and NSAIDs Patient cleared for surgery with low risk for cardiac complications on a NON cardiac procedure. Labs Stable He still shows GFR of 27 and does see Nephrology EKG shows inferior infarct age indeterminate Echo from 01/2022 Shows Normal EF >55% Normal Function Encounters Date Type Department Care Team Description 09/07/2024 Orders Only [facility] [address] [facility] [address] [place] [address] Aleta De Los Santos MA Multiple thyroid nodules (Primary Dx) 09/04/2024 Refill [facility] [address] [facility] [address] [place] [address] Biju Stone MD Primary hypertension 08/28/2024 Patient Outreach [facility] [address] [place] [address] Camryn Foster, EDUARDO 08/13/2024 1:00 PM EDT Office Visit [facility] [address] [facility] [address] [place] [address] Biju Stone MD Primary hypertension (Primary Dx); Chronic kidney disease due to hypertension ; Thyroid nodule 08/13/2024 Travel 08/06/2024 Patient Outreach [facility] [address] [place] [address] Camryn Foster, EDUARDO 07/06/2024 Patient Outreach [facility] [address] [place] [address] Camryn Foster, RN from Last 3 Months Immunizations Immunization Administration Dates Next Due Influenza, High Dose Seasona l, Preservative Free 12/06/2021,01/05/2021 Influenza, High-dose Seasona l, Quadrivalent, Preservative Free 01/05/2022,12/06/2021,01/05/2021 Influenza, Seasonal, Quadriv alent, Adjuvanted 12/19/2022 Influenza, Unspecified 12/19/2022,2021,12/06/2021,2020 Influenza, trivalent, adjuvanted 12/26/2023 Moderna Bivalent Booster Vaccination 12/06/2021 Pfizer [place]-sucrose 6mo-4y.o. 12/19/2022 Pneumococcal Conjugate PCV 20 12/06/2021 SARS-COV-2 (COVID-19) vaccin e, mRNA, spike protein, LNP, bivalent, preservative free, 30 mcg/0.3 mL dose, [place]-sucrose formulation 12/06/2021 SARS-CoV-2, Unspecified 12/06/2021 Tdap 05/08/2022 Family History Medical History Relation Name Comments Heart disease Father Merl age 50 CAD hea rt attack Diabetes Mother Mom Skin cancer Mother Mom Relation Name Status Comments Father Merl Mother Mom Social History Tobacco Use Types Packs/Day Years Used Date Smoking Tobacco: Former Cigarettes 2 16.4 0 10/10/1959 - 03/11/1976 Smokeless Tobacco: Never Tobacco Cessation:Counseling Given: Not Answered Comments:Loved it Alcohol Use Standard Drinks/Week Comments [...] friends, or neighbors? Twice a week 05/08/19 25 How often do you get togethe r with friends or relatives? Three times a week 05/08/2024 How often do you attend chur ch or sikh services? 1 to 4 times per year 05/08/2024 Do you belong to any clubs o r organizations such as mormon groups, unions, fraternal or athletic groups, or [...] Recorded Patient Health Questionnaire-2 Score 0 08/13/2024 [facility] of Occupat ional Health - Occupational Stress [...] in a usp (including now)? No 12/04/2022 Housing Stability Vital Sign Answer Tr e Recorded In the last 12 months, was t here a time when you were not able to pay the mortgage or rent on time? No 05/08/2024 In the past 12 months, how m any times have you moved where you were living? 0 05/08/2024 At any time in the past 12 m [facility], were you homeless or living in a usp (including now)? No 05/08/2024 Sex and Gender Information Value Date Recorded Sex Assigned at Not on file Legal Sex Male 11:19 PM EDT Gender Identity Male 03/12/2023 10:39 AM EST Sexual Orientation Not on file Last Filed Vital Signs Vital Sign Reading Time Taken Comments Blood Pressure 138/88 08/13/2024 12:57 PM EDT Pulse 66 08/13/2024 12:57 PM EDT Temperature - - Respiratory Rate 16 04/16/2023 3:01 PM EST Oxygen Saturation 99% 08/13/2024 12:57 PM EDT Inhaled Oxygen Concentration - - Weight 104 kg (230 lb) 08/13/2024 12:57 PM EDT Height 185.4 cm (6' 1 ) 08/13/2024 12:57 PM EDT Body Mass Index 30.34 08/13/2024 12:57 PM EDT Plan of Treatment Upcoming Encounters Date Type Department Care Team (Late st Contact Info) Description 09/15/2024 2:30 PM EDT Office Visit [facility] [address] [facility] [address] [place] [phone] Biju Stone MD 112 [facility] [address] [place] [address] 09/28/2024 11:20 AM EDT Office Visit [facility] 112 [facility] [address] [place] [address] Leni Ruggiero MD 112 [facility] [address] [place] [address] 01/07/2025 1:00 PM EDT Office Visit [facility] [address] [place] [address] Paresh Lagunas, TRANSFORMER SHOP SUPERVISOR [address] [place], [place] [id number] Health Maintenance Due Date Last Done Comments Influenza Vaccine (#1) 2024 , 12/19/2022, 12/19/2022, Additional history exists Medicare Annual Wellness (AWV) 04/28/2025 0 04/28/2024, 03/19/2023, 12/04/2021 Pneumococcal Vaccine: 65+ Years Completed 2 Insurance MEDICARE [employer] Care Teams Clinic Office Manager Relationship Specialty Start Date End Date Biju Stone MD [address] [facility] 110 [place] [address] PCP - General Family Medicine 07/10/22 Biju Stone MD [address] [facility] [address] [place] [address] PCP - ACO Reach 08/02/22 Camryn Foster, EDUARDO [address] [facility] [address] [place] [address] Registered Nurse Family Medicine 04/10/23
--- OUTSIDE RECORDS SUMMARY | 2024-09-15 11:20 | XMS_ITS | Encounter Summary ---
Author Organization [facility] Address [address] [place] [address] Care Team Providers Care Staking Engineer Name Role Phone Biju Stone MD Primary Care Provider [phone] Biju Stone MD Unavailable Camryn Foster RN Unavailable [phone] Encounter Details Date Type Department Care Team (Late st Contact Info) Description 04/20/2024 Abstract [facility] 112 [facility] 110 [place] [address] Biju Stone MD 112 [facility] 110 [place], [place] [id number] Social History Tobacco Use Types Packs/Day Years [...] How often do you attend chur or jain services? 1 to 4 times per year [...] Recorded Patient Health Questionnaire-2 Score 0 02/04/2023 [facility] [place] of Occupat ional Health - Occupational Stress [...] Visit [facility] [address] [facility] [address] [place] [address] Biju Stone MD [address] [place] [address] [place] [address] 09/28/2024 11:20 AM EDT Office Visit [facility] [address] [place] [address] [place] [address] Leni Ruggiero MD [address] [facility] [address] [place] [address] 01/07/2025 1:00 PM EDT Office Visit [facility] [address] [place] [phone] Paresh Lagunas, EATING DISORDER PSYCHOLOGIST [address] [place], [place] [id number] documented as of this encounter Visit Diagnoses Not on filedocumented in this encounter Additional Health Concerns Assessment Noted Time A fall risk assessment has been complete d for the patient 06/14/2023 10:59 AM EDT documented as of this encounter Care Teams Staking Engineer Relationship Specialty Start Date End Date Biju Stone MD [address] [facility] 110 [place] [address] PCP - General Family Medicine 07/10/22 Biju Stone MD [address] [facility] 110 [place] [address] PCP - ACO Reach 08/02/22 Camryn Foster, EDUARDO [address] [facility] [address] [place] [address] Registered Nurse Family Medicine 04/10/23 documented as of this encounter
--- OUTSIDE RECORDS SUMMARY | 2024-09-15 14:13 | XMS_ITS ---
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 [employer] Name Role Phone SHITAL CRUZ Attending Unavailable SHITAL CRUZ Attending Unavailable SHITAL CRUZ Attending Unavailable SHITAL CRUZ Attending Unavailable SHITAL CRUZ Attending Unavailable BILL RAMIREZ Attending Unavailable BILL RAMIREZ Referring Unavailable PROBLEMS No Problem Records Found PROCEDURES No Procedure Records Found RESULTS LIPID PANEL, STANDARD Collected: 04/22/2024 8:39 AM Status: F Source: [employer] Order Comment: REFUSED PSA A BN SIGNED TYPE CODE TESTS RESULT OUT OF RANGE REFERENCE UNITS LAB [id number] CHOLESTEROL, TOTAL 118 Normal <200 mg/dL LAB [id number] HDL CHOLESTEROL 34 Low > OR = 40 mg/dL LAB [id number] TRIGLYCERIDES 118 Normal <150 mg/dL LAB [id number] LDL-CHOLESTEROL 64 Normal mg/dL (calc) Result Comment: Reference ra nge: <100 Desirable range <100 mg/dL for primary prevention; <70 mg/dL for patients with CHD or diabetic patients with > or = 2 CHD risk factors. LDL-C is now calculated using the Dipak-Salo calculation, which is a validated novel method providing better accuracy than the Friedewald equation in the estimation of LDL-C. Dipak SS et al. TERRI. 2013;310(19): 9362-6261 (http://education.[employer]/faq/VQU749) LAB [id number] CHOL/HDLC RATIO 3.5 Normal <5.0 (calc) LAB [id number] NON HDL CHOLESTEROL 84 Normal <130 mg/dL (calc) Result Comment: For patients with diabetes plus 1 major ASCVD risk factor, treating to a non-HDL-C goal of <100 mg/dL (LDL-C of <70 mg/dL) is considered a therapeutic option. Performed By: #### [id number] ### # [facility] [address] [place] [address] Veneer Glue Spreader: Tiffanie Blas #### 7600, 91888 #### [facility] [address], [address] [place] [address] Veneer Glue Spreader: Pablo Kidd MD COMPREHENSIVE METABOLIC PANEL Collected : 04/22/2024 8:39 AM Status: F Source: [facility] TYPE CODE TESTS RESULT OUT OF RANGE REFERENCE UNITS LAB [id number] GLUCOSE 89 Normal 65-99 mg/dL Result Comment: Fasting reference interval LAB [id number] UREA NITROGEN (BUN) 31 High 7-25 mg/dL LAB [id number] CREATININE 1.76 High 0.70-1.22 mg/dL LAB [id number] EGFR 38 Low > OR = 60 mL/min/1 .73m2 LAB [id number] BUN/CREATININE RATIO 18 Normal 6-22 (calc) LAB [id number] SODIUM 142 Normal 135-146 mmol/L LAB [id number] POTASSIUM 4.6 Normal 3.5-5.3 mmol/L LAB [id number] CHLORIDE 108 Normal 98-110 mmol/L LAB [id number] CARBON DIOXIDE 26 Normal 20-32 mmol/L LAB [id number] CALCIUM 9.0 Normal 8.6-10.3 mg/dL LAB [id number] PROTEIN, TOTAL 6.2 Normal 6.1-8.1 g/dL LAB [id number] ALBUMIN 3.8 Normal 3.6-5.1 g/dL LAB [id number] GLOBULIN 2.4 Normal 1.9-3.7 g/dL (calc) LAB [id number] ALBUMIN/GLOBUL IN RATIO 1.6 Normal 1.0-2.5 (calc) LAB [id number] BILIRUBIN, TOTAL 0.8 Normal 0.2-1.2 mg/dL LAB [id number] ALKALINE PHOSPHATASE 78 Normal 35-144 U/L LAB [id number] AST 19 Normal 10-35 U/L LAB [id number] ALT 23 Normal 9-46 U/L Performed By: #### [id number] ### # [facility] [address] [place] [address] Veneer Glue Spreader: Tiffanie Blas #### 7600, 30859 #### [facility] [place] [address] [facility], [address] [place] [address] Veneer Glue Spreader: Pablo Kidd MD ABN TEST REFUSAL Collected: 8:39 AM Status: F Source: [facility] TYPE CODE TESTS RESULT OUT OF RANGE REFERENCE UNITS LAB [id number] LINA Result Comment: Be advised that your patient has indicated on the advance beneficiary notice their decision not to receive the following laboratory tests. As a result, the tests will not be performed. LAB [id number] ABN TEST REFUSED 5363 PSA Performed By: #### 57344 ### # [facility] [address] [place] [address] Veneer Glue Spreader: iTffanie Blas #### 7600, 07198 #### [facility] [address] [facility], [address] [place] [address] Veneer Glue Spreader: Pablo Kidd MD ALLERGIES No Allergies Records Found ENCOUNTERS ADMIT/DISCHARGE ACCOUNT NUMBER ADMITTING ENCOUNTER CLASS LOCATION SOURCE 09/15/2024/ 5 [id number] Ambulatory Building:[facility] 08/13/2024/ 5 [id number] Ambulatory Building:[facility] 04/28/2024/ 5 [id number] Ambulatory Building:[facility] 01/08/2024/ 4 [id number] Ambulatory Building:[facility] 01/08/2024/ 4 [id number] Ambulatory Building:[facility] 12/24/2023/ 4 [id number] Ambulatory Building:[facility] 09/24/2023/ 4 [id number] Ambulatory Building:[facility] PAYERS ENCOUNTER GUARANTOR PAYER SUBSCRIBER SOURCE 09/15/2024 ASIA [place]INCONOB: [place] [address]Agi: () Primary Insurance:MEDICAREPo licy Number: [id number] Date:7467-23-63Qgwm Name:Medicare ASIA RINCONOB: [id number] [place] [address] [facility] 09/15/2024 Secondary Insurance:MEDICAL MUTUALPolicy Number: [id number] e Date:2021-02-08 ASIA RINCONOB: [id number] [place] [address] [facility] 08/13/2024 ASIA RINCONOB: [place] [address]Aug: () Primary Insurance:MEDICAREPo licy Number: [id number] Date:6321-41-34Jggx Name:Medicare ASIA RINCONOB: [id number] [place] [address] [facility] 08/13/2024 Secondary Insurance:MEDICAL MUTUALPolicy Number: [id number] e Date:2021-02-08 ASIA RINCONOB: [id number] [place] [address] [facility] 04/28/2024 ASIA RINCONOB: [place] [address]Rib: () Primary Insurance:MEDICAREPo licy Number: [id number] Date:4548-18-28Cvru Name:Medicare ASIA RINCONOB: [id number] [place] [address] [facility] 04/28/2024 Secondary Insurance:MEDICAL MUTUALPolicy Number: [id number] e Date:2021-02-08 ASIA RINCONOB: [id number] [place] [address] [facility] 01/08/2024 ASIA RINCONOB: [id number] [place] [address]Uot: () Primary Insurance:MEDICAREPo licy Number: [id number] Date:3429-83-33Tmrm Name:Medicare ASIA RINCONOB: [id number] [place] [address] [facility] 01/08/2024 Secondary Insurance:MEDICAL MUTUALPolicy Number: [id number] e Date:2021-02-08 ASIA RINCONOB: [id number] [place] [address] [facility] 01/08/2024 ASIA RINCONOB: [place] [address]Zpr: (HP) Primary Insurance:MEDICAREPo licy Number: [id number] Date:0804-57-30Nizr Name:Medicare ASIA RINCONOB: [id number] [place] [address] [facility] 01/08/2024 Secondary Insurance:MEDICAL MUTUALPolicy Number: [id number] e Date:2021-02-08 ASIA RINCONOB: [id number] [place] [address] [facility] 12/24/2023 ASIA RINCONOB: [place] [address]Wha: (HP) Primary Insurance:MEDICAREPo licy Number: [id number] Date:1072-86-82Axxv Name:Medicare ASIA RINCONOB: [id number] [place] [address] [facility] 12/24/2023 Secondary Insurance:MEDICAL MUTUALPolicy Number: [id number] e Date:2021-02-08 ASIA RINCONOB: [id number] [place] [address] [facility] 09/24/2023 ASIA RINCONOB: [place] [address]Zgf: (HP) Primary Insurance:MEDICAREPo licy Number: [id number] Date:7815-47-46Upyw Name:Medicare ASIA RINCONOB: [id number] [place] [address] [facility] 09/24/2023 Secondary Insurance:MEDICAL MUTUALPolicy Number: [id number] e Date:2021-02-08 ASIA RINCONOB: [id number] [place] [address] [facility]
== END 2024-09-15 11:18 | disposition home or self-care (01) ==
LOC: US 11:17
PROVIDERS: PCP Family Medicine; Visit Provider Otolaryngology
DX: E04.2 Nontoxic multinodular goiter (principal)
CPT/HCPCS: 76536